=== PATIENT | female | born 1960 | race Caucasian/White ===

== ENCOUNTER → 2017-05-28 | Outpatient (CLI) | payer OTHER ==
[~2017-05-28] MED LIST: SIMV40TA2 PO
[2017-05-28 16:07] LABS: FOLLICLE STIMULAT HORMONE 107.78 IU/L
== END | disposition home or self-care (01) ==
LOC: C.LAB1850 14:32
PROVIDERS: ATTEND Obstetrics & Gynecology
DX: N95.0 Postmenopausal bleeding (principal)

== ENCOUNTER → 2017-07-05 | Outpatient (CLI) | payer OTHER ==
[2017-07-05 09:29] LABS: HEMATOCRIT 40.5 % (37-47); HEMOGLOBIN 13.4 g/dL (12.0-16.0); MEAN CELL VOLUME 92.9 fL (80-100); MEAN CORPUSCULAR HEMOGLOBIN 30.7 pg (25-34); MEAN CORPUSCULAR HGB CONC 33.1 g/dl (32-36); MEAN PLATELET VOLUME 9.5 fL (7.4-10.4); PLATELET COUNT 228 K/uL (130-400); RED CELL DISTRIBUTION WIDTH CV 12.9 % (11.5-14.5); RED CELL DISTRIBUTION WIDTH SD 43.8 fL (36.4-46.3); WHITE BLOOD COUNT 4.07 K/uL (4.8-10.8)
--- NOTE | 2017-07-05 09:48 | DIAGNOSTIC IMAGING REPORT ---
CHEST 2 VIEWS ROUTINE CLINICAL HISTORY: N95.0, Z01.818 PREOPERATIVE CHEST COMPARISON STUDY: 11/11/2013 FINDINGS: The cardiac and mediastinal contours are normal. There is no evidence of focal pulmonary consolidation. There is no evidence of failure. No pleural effusions are visualized.[ IMPRESSION: No active disease in the chest. Electronically signed by: Reese Sheets M.D. 07/05/2017 9:47 AM Dictated Date/Time: 07/05/2017 9:47 AM
[2017-07-05 10:11] LABS: ALBUMIN 3.7 gm/dl (3.4-5.0); ALT/SGPT 22 U/L (12-78); AST/SGOT 14 U/L (15-37); BLOOD UREA NITROGEN 16 mg/dl (7-18); CALCIUM 9.1 mg/dl (8.5-10.1); CARBON DIOXIDE 28 mmol/L (21-32); CREATININE 0.74 mg/dl (0.60-1.20); GLUCOSE 94 mg/dl (70-99); POTASSIUM 3.9 mmol/L (3.5-5.1); SODIUM 140 mmol/L (136-145)
[2017-07-05 10:12] LABS: ALKALINE PHOSPHATASE 80 U/L (45-117); TOTAL PROTEIN 7.2 gm/dl (6.4-8.2)
== END | disposition home or self-care (01) ==
LOC: C.LAB 08:30
PROVIDERS: ATTEND Obstetrics & Gynecology Gynecologic Oncology
DX: Z01.818 Encounter for other preprocedural examination (principal); N95.0 Postmenopausal bleeding

== ENCOUNTER → 2017-07-30 | Outpatient (CLI) | payer OTHER ==
--- NOTE | 2017-07-30 13:38 | DIAGNOSTIC IMAGING REPORT ---
KUB CLINICAL HISTORY: HEMATURIA, PERSONAL HISTORY OF URINARY CALCULI nephrocalcinosis COMPARISON STUDY: 11/30/2013 FINDINGS: Interval development of a 7 mm calcification mid right kidney. Interval development of a 4 mm calcification upper pole right kidney are normal development of a 4 mm calcification central left kidney. Calcification previous described at the lower pole right kidney is not identified currently. There are no significant paravertebral calcifications. There are multiple stable pelvic vascular calcifications. IMPRESSION: 1. Interval development of at least 2 right and one left renal calcification . 2. Interval resolution of a 4 mm lower pole right renal calcification compared to the prior exam. 3. Nonobstructive bowel pattern. The above report was generated using voice recognition software. It may contain grammatical, syntax or spelling errors. Electronically signed by: Yvan Dodge M.D. 07/30/2017 1:37 PM Dictated Date/Time: 07/30/2017 1:35 PM
== END | disposition home or self-care (01) ==
LOC: C.RAD 13:16
PROVIDERS: ATTEND Nurse Practitioner Family
DX: R31.9 Hematuria, unspecified (principal); Z87.442 Personal history of urinary calculi

== ENCOUNTER → 2017-08-12 | Outpatient (CLI) | payer OTHER ==
[~2017-08-12] MED LIST changes: +DULO-24 PO
[2017-08-12 09:55] LABS: BLOOD UREA NITROGEN 15 mg/dl (7-18); CREATININE 0.85 mg/dl (0.60-1.20)
== END | disposition home or self-care (01) ==
LOC: C.LAB 08:41
PROVIDERS: ATTEND Urology
DX: N20.0 Calculus of kidney (principal)

== ENCOUNTER → 2017-08-13 | Outpatient (CLI) | payer OTHER ==
[~2017-08-13] MED LIST changes: +OPTIRAY 320 IV PRN
--- NOTE | 2017-08-13 08:26 | DIAGNOSTIC IMAGING REPORT ---
CT UROGRAM CLINICAL HISTORY: Hematuria. Nephrolithiasis. COMPARISON STUDY: Abdominal CT dated 01/05/2012 and 04/26/2010. TECHNIQUE: Before and following the IV administration of 119 cc of Optiray 320, CT urogram of the abdomen and pelvis is performed from the lung bases to the proximal femora. Images are reviewed in the axial, sagittal, and coronal planes. IV contrast was administered without complication. A dose lowering technique was utilized adhering to the principles of ALARA. CT DOSE: 1945.30 mGycm FINDINGS: Lung bases: The heart is normal in size and without pericardial effusion. The coronary arteries are calcified. There is also calcification of the aortic valve leaflets. Linear atelectasis versus scarring is seen at the left lung base. No airspace consolidation or pleural effusion is identified. There are at least 8 pulmonary and pleural-based nodules scattered throughout both lung bases. The largest nodule is seen in the right lower lobe adjacent to major fissure on image #24 and measures up to 7 mm. Additional nodules are seen in the right middle lobe on images #14 and #16, and the right lower lobe on image #64, and in the left lower lobe on image #61. These have been present dating back to 2011 and are of doubtful significance given long-term stability. Liver: The contrast-enhanced liver is normal in size, contour, and attenuation. There is no intrahepatic biliary ductal dilatation. The hepatic veins and portal veins are patent. Gallbladder: Unremarkable. Spleen: Normal in size and attenuation. Pancreas: Unremarkable. Adrenal glands: Unremarkable. Kidneys and ureters: The contrast enhanced kidneys are normal in size and without hydronephrosis. There are 2 nonobstructing renal calculi measuring up to 9 mm. There are at least 3 nonobstructing right renal calculi measuring up to 7 mm. The kidneys enhance and excrete symmetrically. There is no enhancing renal cortical mass lesion identified. There is no evidence of urothelial lesion within the renal pelvis bilaterally or along the course of either ureter. The distal left ureter is not well opacified by excreted contrast. Abdominal vasculature: The abdominal aorta is normal in course and caliber noting mild atherosclerotic calcification. Bowel: There is moderate sigmoid diverticulosis without CT evidence of acute diverticulitis. No bowel obstruction is identified. The appendix is well visualized and normal. Peritoneum: There is no intraperitoneal free air or abdominal ascites. There is a fat-containing umbilical hernia. There is a small defect within the right abdominal wall musculature seen on image 226, possibly related to previous laparoscopy port. Lymphadenopathy: None. Pelvic viscera: The bladder is decompressed and grossly unremarkable. Calcified phleboliths are observed in the pelvis. The uterus is surgically absent. No adnexal lesion is seen. Skeletal structures: The skeletal structures are osteopenic. No lytic or blastic lesions are seen. IMPRESSION: 1. There are bilateral nonobstructing renal calculi as above. No ureteral stone or hydronephrosis is seen. 2. There is no enhancing renal cortical mass, and no evidence of urothelial lesion involving the renal pelvis bilaterally or along the course of the ureters. 3. The bladder is decompressed and grossly unremarkable. 4. Mild to moderate sigmoid diverticulosis without CT evidence of acute diverticulitis. 5. There are numerous pulmonary and pleural-based nodules seen at both lung bases. These have been present dating back to 2010 and are of doubtful significance. 6. Additional findings as above. Electronically signed by: Vinh Pérez M.D. 08/13/2017 8:25 AM Dictated Date/Time: 08/13/2017 7:44 AM
== END | disposition home or self-care (01) ==
LOC: C.CTS 07:10
PROVIDERS: ATTEND Urology
DX: N20.0 Calculus of kidney (principal); R31.9 Hematuria, unspecified; K57.30 Diverticulosis of large intestine without perforation or abscess without bleeding

== ENCOUNTER → 2017-08-23 | Outpatient (CLI) | payer OTHER ==
[~2017-08-23] MED LIST changes: -OPTIRAY 320 IV PRN
[2017-08-23 10:07] LABS: BASO % 0.5 %; BASO ABS # 0.02 K/uL (0-0.2); EOS % 5.1 %; EOS ABS # 0.19 K/uL (0-0.5); HEMATOCRIT 37.5 % (37-47); HEMOGLOBIN 12.7 g/dL (12.0-16.0); LYMPH % 36.1 %; LYMPH ABS # 1.34 K/uL (1.2-3.4); MEAN CELL VOLUME 91.7 fL (80-100); MEAN CORPUSCULAR HEMOGLOBIN 31.1 pg (25-34); MEAN CORPUSCULAR HGB CONC 33.9 g/dl (32-36); MEAN PLATELET VOLUME 9.2 fL (7.4-10.4); MONO % 10.8 %; NEUT % 47.5 %; NEUT ABS # 1.76 K/uL (1.4-6.5); PLATELET COUNT 217 K/uL (130-400); RED CELL DISTRIBUTION WIDTH SD 43.8 fL (36.4-46.3); WHITE BLOOD COUNT 3.71 K/uL (4.8-10.8)
[2017-08-23 10:41] LABS: BLOOD UREA NITROGEN 15 mg/dl (7-18); CARBON DIOXIDE 27 mmol/L (21-32); CREATININE 0.79 mg/dl (0.60-1.20); SODIUM 142 mmol/L (136-145)
== END | disposition home or self-care (01) ==
LOC: C.LAB 08:58
PROVIDERS: ATTEND Urology
DX: N20.0 Calculus of kidney (principal)

== ENCOUNTER 2018-11-19 06:02 | Inpatient (IN) ==
--- NOTE | 2018-10-10 08:09 | PAT Medication Instructions ---
Medication Instructions Date of Service October 10, 2018 Home Medications duloxetine 20 mg PO HS simvastatin 40 mg PO PM Take morning of surgery NOTHING TO EAT OR DRINK AFTER MIDNIGHT Take evening before surgery duloxetine 20 mg PO HS simvastatin 40 mg PO PM Other Notes If you have any questions please call us at [phone] or [phone] or [phone] or [phone]
--- NOTE | 2018-10-10 09:44 | Anesthesiology Consultation ---
Date of Service October 10, 2018 Assessment & Plan (1) Encounter for pre-operative examination: - All available previous anesthesia records done with [facility], no previously noted intubations - Patient does have noted moderate aortic stenosis (LILLIAN - 0.94 cm2, Ao mean PG - 25.7 Hg) - History of PONV. Scopolamine patch ordered for day of surgery. Chart Review Chart Review: Acceptable Risk for Surgery and Patient seen in Pre Admission Testing Consults Requested none Teaching & Discussion Pre-Anesthesia Teaching/Discussion Notes: Instructed NPO after midnight before surgery, except medications with 15 cc of water. Medication instructions provided according to the PAT guidelines. History Surgery Operation Date: 11/19/18 07:30 Proposed Procedures p Navigational Bronchoscopy with ICG Marking, Robotic Right VATS with Right Lower Lobe Wedge Resection, Possible Right Lower Lobectomy with Mediastinal Lym phadenectomy - Bennie Gambino MD, FACS s Robotic Video Assisted Thoracoscopy - Bennie Gambino MD, FACS Height/Weight Height: 5 ft 4 in Weight: 81.5 kg Allergies Allergy/AdvReac Type Severity Reaction Status Date / Time atorvastatin Allergy Mild ACHINESS Verified 10/03/18 10:42 rosuvastatin Allergy Mild ACHINESS Verified 10/03/18 10:42 Medications Home Medications Medication Instructions Recorded Confirmed Last Taken duloxetine 20 mg PO HS 03/24/18 10/03/18 04/03/18 simvastatin 40 mg PO PM 03/24/18 10/03/18 04/03/18 Past Medical History Medical History Anxiety Aortic stenosis MILD (FOLLOWS WITH DR. 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 Able to climb FOS. Denies CP. No SOB at rest. Does get mild MOSQUERA. ) Past Surgical History Surgical History History of cardiac cath 2007 (NO STENTS) History of colonoscopy History of cystoscopy STONE REMOVAL History of dilatation and curettage UTERINE ABLATION History of lithotripsy MULTIPLE History of tonsillectomy History of tooth extraction History of total abdominal hysterectomy and bilateral salpingo-oophorectomy Past Anesthesia History No Hx of Anesthesia Complications and No Family Hx of Anesthesia Complications History of PONV No Hx of Motion Sickness and History of PONV Social History Smoking Status: Former smoker tobacco type: cigarettes Smoking cigarettes per day: 20-40 Do You Dip or Chew Tobacco: No Smoking End Date: 1987 Hx Alcohol Use: Yes Alcohol type: wine alcohol intake frequency: a few times a week Hx Substance Use: No substance use type: does not use Review of Systems Patient denies chest pain, shortness of breath, joint pain, reflux, cough, wheezing, palpitations. +MOSQUERA (mild) +Cough/wheezing (when allergies act up) Physical Exam Vital Signs BP: 104/70 P: 72 R: 16 T: 98.0 SPO2: 96% on RA ENMT Thyromental Distance: > or= 3.5 Finger Breadths (3.5) Mallampati Class: I Neck normal visual inspection and trachea midline; neck extension not limited Respiratory normal respiratory effort Auscultation: lungs clear to auscultation bilaterally Cardiovascular Rate/Rhythm: regular rate and regular rhythm Heart Sounds: + murmur (06/18 (Aortic Stenosis)) Vessels: no carotid bruit Neurologic moves all extremities Psychiatric Orientation: alert and oriented x 3 Testing Laboratory Results 10/10/18 09:55 10/10/18 09:55 Blood Type O Positive 10/10/18 09:55 Antibody Screen NEGATIVE 10/10/18 09:55 Electrocardiogram Date: 10/10/18 Findings: + NSR @ (60) and + no change from (11/11/13) Echocardiogram Date: 07/16/18 EF: 65-70% Normal biventricular systolic function. Mild concentric left ventricular hypertrophy Type 1 left ventricular diastolic dysfunction Normal chamber dimensions Moderately calcified aortic valve. Moderate aortic stenosis based on mean gradient across aortic valve and the dimensionless aortic valve index. Mild to moderate aortic regurgitation. Trace mitral regurgitation Trace tricuspid regurgitation Normal estimated right ventricular systolic pressure Compared to an echocardiogram of 06/26/17, there has been a slight increase in the mean gradient across the aortic valve, slight decrease in the dimensionless aortic valve index, and slight decrease in the calculated aortic valve area. LILLIAN - 0.94 cm2 Ao mean PG - 25.7 Hg Ao max PG - 56.[address] SCAN OF THE CHEST WITH IV CONTRAST 09/17/18 CLINICAL HISTORY: Pulmonary nodules. FINDINGS: Thyroid: Imaged portions of the thyroid gland are normal in size and atten uation. Thoracic aorta: The thoracic aorta is normal in caliber and demonstrates 4vessel variant arch anatomy. No dissection is seen. Pulmonary vasculature: The pulmonary trunk is normal in caliber. There are no filling defects identified in the central pulmonary vessels to indicate pulmonary embolus. Note that this examination was not protocoled for evaluation of the pulmonary arteries. Heart: The heart is normal in size and without pericardial effusion. Lungs and pleural spaces: There is no airspace consolidation or pleural effusion. The trachea and central airways are clear. Again seen are numerous (greater than 10) irregular pulmonary nodules with a lower lobe predominance. The largest nodule in the left lower lobe seen on the 08/21/2018 CT scan as decreased in size. This now measures 12 mm as seen on image #183 (producing measured 16 mm). A right lower lobe nodule on image #170 has increased in size. This measures 11 mm as seen on image #170 (previously measuring 7 mm). Mediastinum: There is no mediastinal lymphadenopathy. Yani: Clear. Axillae: There is no axillary lymphadenopathy. Upper abdomen: Partially visualized upper abdominal viscera is within normal limits. Skeletal structures: No lytic or blastic bony lesions are seen. IMPRESSION: 1. There are numerous irregular (greater than 10) pulmonary nodules scattered throughout both lungs. These have waxed and waned as compared to 08/21/2018, and the appearance suggests an infectious/inflammatory etiology. Pulmonology follow- up is recommended as is CT follow-up. 2. There is no airspace consolidation or pleural effusion. 3. No mediastinal or hilar adenopathy is seen.
[2018-10-10 10:58] LABS: Basophils # (auto) 0.01 K/uL (0-0.2); Basophils % (auto) 0.3 %; Eosinophils # (auto) 0.14 K/uL (0-0.5); Eosinophils % (auto) 3.7 %; Hematocrit (blood only) 37.3 % (37-47); Hemoglobin 12.8 g/dL (12.0-16.0); Immature Granulocytes # (auto) 0.01 K/uL (0.00-0.02); Immature Granulocytes % (auto) 0.3 %; Lymphocytes # (auto) 1.32 K/uL (1.2-3.4); Lymphocytes % (auto) 35.1 %; Mean Corpuscular Hgb Conc 34.3 g/dL (32-36); Mean Corpuscular Volume 93.5 fL (80-100); Mean Platelet Volume 9.5 fL (7.4-10.4); Monocytes # (auto) 0.48 K/uL (0.11-0.59); Monocytes % (auto) 12.8 %; Neutrophils % (auto) 47.8 %; Platelet Count 229 K/uL (130-400); RDW Coefficient of Variation 13.3 % (11.5-14.5); RDW Standard Deviation 45.5 fL (36.4-46.3); Red Blood Count 3.99 M/uL (4.2-5.4); White Blood Count 3.76 K/uL (4.8-10.8)
[2018-10-10 11:06] LABS: BUN Creatinine Ratio 17.3 (10-20); Calcium 8.8 mg/dl (8.5-10.1); Creatinine Clr Calc Pharmacy 80.1 ml/min; Est GFR (African American) 94.9; Est GFR (Non-African American) 81.8; Potassium 4.1 mmol/L (3.5-5.1)
[~2018-11-19 06:02] MED LIST changes: -DULO-24 PO; +LR 15ML/HR IV SCH; -SIMV40TA2 PO
[2018-11-19] MEDS ORDERED: ONDANSETRON INJ 2 MG/ML 2 ML VIAL ONE (06:54)
[2018-11-19] MEDS ORDERED: PROPOFOL IV EMULSION 10 MG/ML 20 ML VIAL IV ONE (06:54)
[2018-11-19] MEDS ORDERED: ROCURONIUM BROMIDE 10 MG/ML 5 ML VIAL ONE ×6 (06:54→09:12)
[2018-11-19] MEDS ORDERED: LIDOCAINE HCL 2% 2 ML VIAL/AMP(20MG/ML) INFIL ONE (06:54)
[2018-11-19] MEDS ORDERED: MIDAZOLAM HCL 1 MG/ML 2ML VIAL ONE (06:55)
[2018-11-19] MEDS ORDERED: fentaNYL citrate 100 MCG/2 ML VIAL ONE ×2 (06:55→08:50)
[2018-11-19] MEDS: SCOPOLAMINE 1.5 MG TDSY TD SCH (06:57)
[2018-11-19] MEDS ORDERED: BUPIVACAINE 0.5 % 5 MG/1 ML MPF 30ML VIAL ONE (06:58)
[2018-11-19] MEDS ORDERED: SODIUM CHLORIDE 0.9% INJ 10 ML VIAL ONE (06:58)
--- NOTE | 2018-11-19 06:58 | History & Physical Report ---
Date of Service November 19, 2018 Assessment & Plan (1) Multiple lung nodules on CT: We had a long discussion about this particular case. We are going to proceed with a indocyanine green dye marking via electromagnetic navigational bronchoscopy. We will then proceed with a wedge resection and use firefly technology to localize this. For frozen section shows this to be a primary lung cancer we will proceed with a right lower lobectomy with mediastinal lymphadenectomy. If not we will proceed with a wedge resection alone. We will also send this for culture. Present on Admission?: Yes History of Present Illness Lucia Aragon is a 58-year-old female with a very light history of cigarette smoking. She quit smoking more than 20 years ago. She had a right-sided abdominal hernia underwent a CT scan was found to have some pulmonary nodules. She had a robotic hysterectomy for what turned out to be menorrhagia. She is had a cough for the last 1 to 2 years which is been persistent and nonproductive but bothersome to her. No hemoptysis. She is quite concerned about these nodules. PET scan did not show hypermetabolic activity but there is a right lower lobe nodule in particular the concern to me. We had a long talk in the office and I also discussed this with the patient and her today. Should this mass proved to be malignant she would easily tolerate a lobectomy. I have to say I am concerned about its appearance however the lack of hypermetabolic activity makes me feel a bit better. I did explain to the patient and her family that we could observe this. We could also proceed as we are going to do with a navigational bronchoscopy and a marking with indocyanine green with a wedge resection under firefly fluorescence. We discussed risk and benefits and they are aware. She would like to get this "settled". The cough in particular concerns her. Primary Care Provider: PETERSON Workman Allergies Allergy/AdvReac Type Severity Reaction Status Date / Time atorvastatin Allergy Mild ACHINESS Verified 11/19/18 06:19 rosuvastatin Allergy Mild ACHINESS Verified 11/19/18 06:19 Home Medications Home Medications Medication Instructions Recorded Confirmed Type duloxetine 20 mg PO HS 03/24/18 11/19/18 History simvastatin 40 mg PO PM 03/24/18 11/19/18 History Past Med/Surg History Medical History Incisional hernia (Acute) Right upper abdomen- from hysterectomy per pt. Lung nodule CURRENT ISSUE Anxiety Aortic stenosis MILD (FOLLOWS WITH DR. HACKETT)- Murmur Hyperlipidemia Kidney stones Surgical History History of cardiac cath 2007 (NO STENTS) History of colonoscopy History of cystoscopy STONE REMOVAL History of dilatation and curettage UTERINE ABLATION History of lithotripsy MULTIPLE History of tonsillectomy History of tooth extraction History of total abdominal hysterectomy and bilateral salpingo-oophorectomy Social History Preferred Language: Yakut Communication Ability: Effective Resident Inspector Required: No Beliefs That Will Affect Care: None Current Living Situation: Spouse Feels Safe at Home: Yes Safety Concerns: Feels Safe At This Time Smoking Status: Former smoker (QUIT IN 1987, SMOKED FOR 5 YEARS) Tobacco Type: cigarettes ; Cigarettes Per Day: 20-40 ; Do You Dip or Chew Tobacco: No ; Smoking End Date: 1987 ; Second Hand Exposure: No ; Hx Alcohol Use: Yes Alcohol type: wine Hx Substance Use: No Review of Systems Review of Systems: All systems reviewed & are unremarkable except as noted in HPI & below Patient has aortic stenosis. I discussed this case with Dr. Ezequiel Hackett who is also talked to the patient recently. She tolerated the robotic hysterectomy nicely. Patient understands she is at a bit more of a risk because of this aortic stenosis but has no symptoms from it. The rest of her review of systems was unremarkable. Physical Exam Physical Exam: This well-developed well-nourished female who is in no acute distress. She wears glasses. Extraocular movements are intact. Pupils were equal round reactive. Her sclera anicteric. She has no nasolabial flattening. Tongue is midline. Her teeth in good repair. Her neck is supple. She has no supra clavicular cervical lymphadenopathy. She had no axillary adenopathy. Her lungs are grossly clear this morning. She is regular rate and rhythm of her heart. Her abdomen is soft nontender. She has no peripheral edema. She has good peripheral pulses with no joint effusions. Neurologically she is completely intact. Results & Data Vital Signs (Past 12 Hours) Vital Signs Temp Pulse Resp BP Pulse Ox 11/19/18 06:21 36.5 C 70 18 125/62 97 PG Care Time/CCT Total # of Minutes Spent Total Time Spent with Patient: Total time spent is greater than 50% in coordination of care (as documented) at patient's floor/unit and/or counseling patient:
[2018-11-19] MEDS ORDERED: SODIUM CHLORIDE 0.9% PF 50 ML VIAL ONE (06:59)
[2018-11-19] MEDS ORDERED: BUPIVACAINE LIPOSOME 1.3% 266 MG/20 ML VIAL ONE (07:00)
[2018-11-19] MEDS ORDERED: ATROPINE SULFATE 0.1 MG/ML 10ML SYR IV PRN (07:08)
[2018-11-19] MEDS ORDERED: fentaNYL citrate 100 MCG/2 ML VIAL IV PRN (07:08)
[2018-11-19] MEDS ORDERED: ePHEDrine sulfate 50 MG/ML AMP IV PRN (07:08)
[2018-11-19] MEDS ORDERED: HYDROmorphone INJ 1 MG/ML SYRINGE IV PRN (07:08)
[2018-11-19] MEDS ORDERED: ONDANSETRON INJ 2 MG/ML 2 ML VIAL IV PRN ×2 (07:08→12:10)
[2018-11-19] MEDS ORDERED: CEFAZOLIN 2,000 MG/15 ML IV PUSH IV ONE (07:20)
--- NOTE | 2018-11-19 09:00 | Fluoroscopy Report ---
FL chest 1V frontal HISTORY: 58 years-old Female NAVIGATIONAL BRONCHSCOPY COMPARISON: Chest CT 09/17/2018 TECHNIQUE: 1 spot fluoroscopic image of the chest was obtained utilizing 30.9 seconds of fluoroscopy time. FINDINGS: A bronchoscope is noted about the right mainstem bronchus with catheter device projecting over the me dial right lung base. IMPRESSION: Fluoroscopic assistance as above. Please see procedural report for further details. The above report was generated using voice recognition software. It may contain grammatical, syntax o r spelling errors. Electronically signed by: Fam Chew M.D. 11/19/2018 8:59 AM
[2018-11-19] MEDS ORDERED: CEFAZOLIN 2000MG 2,000 MG/15 ML SYR IV ONE (09:57)
[2018-11-19] MEDS ORDERED: PROGEL PLEURAL AIR LEAK SEALAN 4ML TOP ONE (09:58)
[2018-11-19] MEDS ORDERED: CEFAZOLIN 1000MG 1,000 MG/7.5 ML SYR IV STA (09:58)
[2018-11-19] MEDS ORDERED: INDOCYANINE GREEN 25 MG/10 ML INJ ONE (09:59)
[2018-11-19] MEDS ORDERED: GLYCOPYRROLATE 0.2 MG/ML VIAL ONE (10:16)
[2018-11-19] MEDS ORDERED: NEOSTIGMINE METHYLSULFATE 5 MG/5 ML SYR ONE (10:16)
--- NOTE | 2018-11-19 10:32 | Post Operative Brief Note ---
PG Immediate Post Op with CF Date of Surgery November 19, 2018 Pre & Post Diagnosis Operation Date: 11/19/18 07:30 Pre-Op Diagnosis: Right Lung Nodule Post-Op Diagnosis: Right Lung Nodule Procedure Operation Date: 11/19/18 07:30 Actual Procedures p Navigational Bronchoscopy with ICG Marking(Not Applicable) - Bennie Gambino MD, FACS s Right Robotic Video-Assisted Thoracoscopy, Right Lower Lobe Wedge Resection, with Mediastinal Lymphadenectomy(Right) - Bennie Gambino MD, FACS Surgeon Bennie Gambino MD, FACS Dental Surgeon William NEGRO Estimated Blood Loss 10 Findings Consistent with Post-Op Diagnosis Specimens Specimen Description: Specimen for Bronchoscopy handled by Respiratory Permanent A: R9 Lymph Node B: R8 Lymph Node Culture 1: Culture of R8 Lymph Nodes 2: Right Lower Lobe Wedge for Culture Frozen 1: Right Lower Lobe Wedge 2: Additional Right Lower Lobe Wedge 3: Right Lower Lobe Wedge #3 4: Right Lower Lobe Wedge #4 Drains Alonso Catheter
[2018-11-19] MEDS ORDERED: METOCLOPRAMIDE HCL INJ 5 MG/ML 2 ML VIAL IV ONE (10:40)
--- NOTE | 2018-11-19 11:03 | XRay Report ---
SINGLE VIEW CHEST CLINICAL HISTORY: Status post right-sided lung biopsy. FINDINGS: An AP, portable, upright chest radiograph is compared to study dated 07/05/2017 and correlat ed with chest CT dated 09/17/2018. The examination is degraded by portable technique and patient rotati on. The cardiomediastinal silhouette is unremarkable. A right-sided chest tube is in place. Trace ri ght apical pneumothorax is identified. Airspace consolidation is seen at the medial right lung base. There is a trace right pleural effusion. Atelectasis is noted at the left lung base. The skeletal str uctures are osteopenic. The bony thorax is grossly intact. IMPRESSION: 1. A right-sided chest tube is in place and there is trace right apical pneumothorax. 2. Consolidation at the medial right lung base could represent atelectasis, pneumonia/aspiration, or possibly postprocedural hemorrhage. Clinical correlation will be required. 3. There is trace right pleural effusion. Electronically signed by: Vinh Pérez M.D. 11/19/2018 11:02 AM
[2018-11-19] MEDS ORDERED: MoRPHine SULFATE 2 MG/ML CARP IV PRN (12:10)
[2018-11-19] MEDS ORDERED: D5W AND 1/2NSS 1,000 ML IV SCH (12:10)
--- NOTE | 2018-11-19 12:18 | Anesthesiology Progress Note ---
Date of Service November 19, 2018 Anesthesia Post Procedure Vital Signs Vital Signs: Temp Pulse Pulse Resp BP Pulse Ox 11/19/18 11:50 66 14 97/73 L 97 11/19/18 11:45 36.3 C L 61 12 100/65 98 11/19/18 11:35 59 L 14 105/57 L 100 11/19/18 11:25 56 L 17 105/56 L 100 11/19/18 11:15 60 16 102/58 L 100 11/19/18 11:05 69 17 100/60 99 11/19/18 10:55 77 14 103/74 100 11/19/18 10:46 36.1 C L 90 18 118/68 100 11/19/18 06:21 36.5 C 70 18 125/62 97 Pain Intensity Medial Back: Pain Intensity: 4 Transfer of Care Handoff Completed per policy Notes Mental Status: alert / awake / arousable and participated in evaluation Patient Amnestic to Procedure: Yes Nausea / Vomiting: adequately controlled Pain: adequately controlled Airway Patency, RR, SpO2: stable & adequate BP & HR: stable & adequate Hydration State: stable & adequate Anesthetic Complications: no major complications apparent and Pt Satisfied with anesthetic care
[2018-11-19] MEDS ORDERED: ACETAMINOPHEN 650 MG SUPP ONE (12:49)
[2018-11-19] MEDS: ACETAMINOPHEN 1,000 MG/100 ML VIAL IV SCH ×2 (12:57→21:56)
[2018-11-19] MEDS: OXYCODONE HCL IR 5 MG TAB (IMMEDIATE RELEASE) PO PRN (13:52)
[2018-11-19] MEDS ORDERED: COUGH DROP (SUGAR FREE) LOZ 24 LOZ/1 BOX BUCCAL PRN (16:31)
--- NOTE | 2018-11-19 17:02 | Operative Report ---
DATE OF OPERATION: 11/19/2018 PREOPERATIVE DIAGNOSIS: Spiculated mass, right lower lobe. POSTOPERATIVE DIAGNOSIS: Benign inflammatory granulomatous nodules, right lower lobe. SURGEON: Bennie Gambino MD. SUPERVISOR LUMP ROOM: MARKY Burks. ANESTHESIA: General anesthesia with a double lumen endotracheal intubation. PROCEDURES: 1. Electromagnetic navigational bronchoscopy with marking of right medial lower lobe mass using indocyanine green dye. 2. Robot-assisted thoracoscopic wedge resection using Firefly technology. 3. Lymph node biopsies. SPECIFICS OF PROCEDURE AND FINDINGS: Lucia Aragon is a 58-year-old who has been bothered by cough for the last 1-2 years. She has a very light history of cigarette smoking. She has had some lesions which have waxed and waned; however, there was a spiculated lesion in the medial right lower lobe that concerned me. She is low risk for a primary carcinoma of the lung, but the nodules were persisted. She had chronic nonproductive cough for the last 1-2 years. We had a long talk about this. I stated to her many ways to handle this and one way would be to simply watch her and repeat a CT scan. She stated quite frankly this has not really helped her in the past. At this point, I did inform the patient and her that we could corrina this small nodule and wedged it out and at least find out its etiology. She was quite eager to have this done. On 11/19/2018, the patient underwent an uncomplicated resection. I wedged out several small nodules. We also did some lymph node biopsies. Frozen section showed some granulomatous inflammation and possible intraparenchymal lymph nodes. She tolerated it quite well and was extubated in the room, had no air leak and had negligible blood loss. The patient was brought to the operating room and laid in the supine position. A single lumen endotracheal tube was inserted. Prophylactic antibiotics given, appropriate timeout was called. Fiberoptic bronchoscope was placed through the adapter and ____ showed an endotracheal tube was in correct position above the que. We then registered the airways without difficulty. The navigational probe was then placed through the working channel and this got us down in the right lower lobe nodule quite quickly. An ultrasound showed that we were in proper position and this was confirmed with the fluoroscopy. I was quite pleased with this and we locked it. We locked this into place and then a long needle was placed and under fluoroscopic guidance it was directed right towards the target. One mL of indocyanine dye was then injected. The navigational probe was then removed. We saw really no evidence of any endobronchial bleeding. Her airways also appeared quite nice with no endobronchial lesions, sputum or erythema. She tolerated this well. We got her readied for her robot-assisted thoracoscopic wedge resection. I attest to the content of the Intraoperative Record and any orders documented therein. Any exception s are noted below.
--- NOTE | 2018-11-19 17:14 | Operative Report ---
DATE OF OPERATION: 11/19/2018 PREOPERATIVE DIAGNOSIS: Spiculated mass, medial right lower lobe. POSTOPERATIVE DIAGNOSIS: Spiculated mass, medial right lower lobe. PROCEDURE: 1. Robot-assisted thoracoscopic wedge resection using ICG, Marcaine and Firefly fluorescence to locate it. 2. Lymph node biopsies. SURGEON: Bennie Gambino MD. STRUCTURAL RIGGER: MARKY Burks. OPERATIVE PROCEDURE AND FINDINGS: On 11/19/2018, the patient was taken to the operating room and underwent an electromagnetic navigational bronchoscopy without difficulty and got us to the lesion. We injected ICG dye and then switched her over to a double lumen tube and turned her in left lateral decubitus position. Right chest was prepped and draped in usual sterile fashion. An 8.5 mm trocar was placed just a little posterior to the mid axillary line in the eighth interspace. We could see there were no adhesions. We then put an 8 mm port, both medially and lateral to this in the same interspace and placed an environmental engineering assistant's port medial. We then went down and using the Firefly technology, we were able to localize this area quite nicely with the fluorescence. We then grasped this area and I fired an Endo-JEFF stapler around this several times. This was sent for frozen section. While waiting for this, I then took down the inferior pulmonary ligament and biopsied level 8 and level 9 nodes. I then spoke to the pathologist and states that he did not really feel a mass per se; however, under the fluorescence it certainly appeared that we got the lesion. However, I was a more aggressive and took more of the lower lobe with 3 separate wedge biopsies. We really had no bleeding at this. ____ area that I sprayed with ProGel. Frozen section came back as probable granulomatous disease with no evidence of malignancy. 266 mg of Exparel and 20 mL of solution was mixed with 30 mL of 0.5% bupivacaine and 250 mL of normal saline used to inject each of the port sites. We then used this to perform an intercostal block from the 2nd through 11th rib. She tolerated this very well. A 24-Spanish chest tube was placed through the anterior port and directed towards the apex. A single 0 Vicryl suture was used to close the muscle layer and the camera port and the environmental engineering assistant's port. A 4-0 Monocryl was used in running subcuticular fashion to approximate the wound edges. She tolerated it well, was extubated in the room. I attest to the content of the Intraoperative Record and any orders documented therein. Any exception s are noted below.
[2018-11-19 18:15] LABS: Prothrombin Time 10.2 Seconds (9.0-12.0)
[2018-11-19] MEDS ORDERED: SIMVASTATIN 40 MG TAB PO SCH (21:00)
[2018-11-19] MEDS ORDERED: DULOXETINE HCL 20 MG CAP PO SCH (21:00)
[2018-11-19] MEDS: DOCUSATE SODIUM 100 MG CAP PO SCH (21:04)
[2018-11-19] MEDS: METOCLOPRAMIDE HCL INJ 5 MG/ML 2 ML VIAL IV SCH (21:04)
[2018-11-20] MEDS: METOCLOPRAMIDE HCL INJ 5 MG/ML 2 ML VIAL IV SCH (03:44)
[2018-11-20] MEDS: OXYCODONE HCL IR 5 MG TAB (IMMEDIATE RELEASE) PO PRN (04:18)
[2018-11-20] MEDS: ACETAMINOPHEN 1,000 MG/100 ML VIAL IV SCH (05:46)
[2018-11-20] MEDS: SCOPOLAMINE 1.5 MG TDSY TD SCH (05:50)
--- NOTE | 2018-11-20 07:16 | XRay Report ---
XR chest 1V portable HISTORY: 58 years-old Female right lung wedge biopsy status post right lung wedge biopsy COMPARISON: Chest radiograph 11/19/2018 TECHNIQUE: Portable AP view of the chest FINDINGS: Cardiomediastinal and hilar silhouettes are unchanged. Postoperative changes of the right lung. Stabl e positioning of the right-sided chest tube, distal tip projecting over the right hilum, slightly cau saeed from comparison. Probable tiny right apical pneumothorax appears decreased in size from compariso n. Unchanged right hemidiaphragmatic elevation. Subsegmental left basilar opacities suggest probable atelectasis. No large pleural effusion or overt pulmonary edema. Bones of the chest appear grossly in tact. IMPRESSION: 1. Postoperative changes of the right lung with right-sided chest tube projecting over the right jamel hilar distribution. 2. Decreased size of the tiny right apical pneumothorax. 3. Subsegmental left basilar opacities suggest atelectasis. The above report was generated using voice recognition software. It may contain grammatical, syntax o r spelling errors. Electronically signed by: Fam Chew M.D. 11/20/2018 7:15 AM
--- NOTE | 2018-11-20 08:04 | XRay Report ---
XR chest 1V portable CLINICAL HISTORY: 58 years-old Female presenting with tube removal. TECHNIQUE: Portable upright AP view of the chest was obtained. COMPARISON: 11/20/2018 at 7:00 AM. FINDINGS: The right pleural drain has been removed. Cardiomediastinal silhouette unchanged. Trace if any right pneumothorax is present. Left basilar bandlike opacity unchanged. No new focal opacity. No pleural ef fusion. Osseous structures normal. Upper abdomen normal. IMPRESSION: 1. Status post removal of the right pleural drain. Trace if any right pneumothorax is present. A per sistent left basilar scarring. Electronically signed by: Dileep Ramírez M.D. 11/20/2018 8:02 AM
[2018-11-20] MEDS: DOCUSATE SODIUM 100 MG CAP PO SCH (08:28)
[2018-11-20] MEDS ORDERED: ENOXAPARIN INJ 40 MG/0.4 ML SYR SQ SCH (09:00)
--- NOTE | 2018-11-20 09:41 | Anesthesiology Progress Note ---
Date of Service November 20, 2018 Anesthesia Post Procedure Vital Signs Vital Signs: Temp Pulse Pulse Resp BP BP Pulse Ox 11/20/18 08:45 37.0 C 75 18 113/73 99/63 L 92 11/20/18 07:26 11/20/18 04:20 75 18 92 11/20/18 04:00 37.0 C 63 16 99/63 L 95 11/20/18 00:00 36.6 C 65 16 113/73 95 11/19/18 22:08 36.9 C 92 H 18 102/62 91 11/19/18 20:03 36.8 C 87 16 100/62 91 11/19/18 18:20 36.7 C 88 18 95/60 L 92 11/19/18 15:57 36.6 C 84 18 101/68 92 11/19/18 14:52 36.5 C 80 18 92/57 L 92 11/19/18 14:02 36.3 C L 79 18 90/49 L 95 11/19/18 13:05 36.2 C L 71 18 101/66 92 11/19/18 12:31 36.3 C L 71 18 106/67 92 11/19/18 12:00 36.6 C 71 16 98/59 L 92 11/19/18 11:50 66 14 97/73 L 97 11/19/18 11:45 36.3 C L 61 12 100/65 98 11/19/18 11:35 59 L 14 105/57 L 100 11/19/18 11:25 56 L 17 105/56 L 100 11/19/18 11:15 60 16 102/58 L 100 11/19/18 11:05 69 17 100/60 99 11/19/18 10:55 77 14 103/74 100 11/19/18 10:46 36.1 C L 90 18 118/68 100 Pulse Ox 11/20/18 08:45 11/20/18 07:26 92 11/20/18 04:20 11/20/18 04:00 11/20/18 00:00 11/19/18 22:08 11/19/18 20:03 11/19/18 18:20 11/19/18 15:57 11/19/18 14:52 11/19/18 14:02 11/19/18 13:05 11/19/18 12:31 11/19/18 12:00 92 11/19/18 11:50 11/19/18 11:45 11/19/18 11:35 11/19/18 11:25 11/19/18 11:15 11/19/18 11:05 11/19/18 10:55 11/19/18 10:46 Pain Intensity Medial Back: Pain Intensity: 3 Notes Mental Status: alert / awake / arousable and participated in evaluation Patient Amnestic to Procedure: Yes Nausea / Vomiting: adequately controlled Pain: adequately controlled Airway Patency, RR, SpO2: stable & adequate BP & HR: stable & adequate Hydration State: stable & adequate Anesthetic Complications: no major complications apparent and Pt Satisfied with anesthetic care
[2018-11-20] MEDS ORDERED: ACETAMINOPHEN 325 MG TAB PO SCH (12:00)
--- NOTE | 2018-11-21 01:57 | Discharge Summary ---
DISCHARGE DIAGNOSIS: Apparent granulomatous nodules, right lower lobe. HOSPITAL COURSE: Lucia Aragon is a very nice 58-year-old female who has had a persistent cough for the last 1 or 2 years and was found to have some nodules in her right lower lobe. She was very concerned about this, so we prepared her for a resection and on 11/19/2018, we performed an electromagnetic navigational bronchoscopy and marking of this area with indocyanine green dye. We then turned her and using 3 of the 4 robotic arms made 3 ports along with an school psychologist assistant port and we were able to localize this mass and wedged out several areas. It appeared to be granulomatous. I was quite pleased with the outcome of this and also dissected out some lymph nodes. She tolerated it well. She had no air leak and really no bleeding. We removed her chest tube on postop day 1. She had good pain control. We did give her tramadol. We will see her back in the office in a week or so.
== END 2018-11-20 09:32 | disposition home or self-care (01) | DRG 168 ==
LOC: ASU 06:02 → 3W 10:27

== ENCOUNTER 2021-04-10 19:52 | Inpatient (IN) ==
[2021-04-10] MEDS ORDERED: SODIUM CHLORIDE 0.9% 500 ML IV STA (19:58)
[2021-04-10 20:47] LABS: Hematocrit (blood only) 42.6 % (37-47); Hemoglobin 14.3 g/dL (12.0-16.0); Mean Corpuscular Hemoglobin 31.6 pg (25-34); Mean Corpuscular Hgb Conc 33.6 g/dL (32-36); Mean Platelet Volume 9.6 fL (7.4-10.4); Platelet Count 230 K/uL (130-400); RDW Coefficient of Variation 13.2 % (11.5-14.5); RDW Standard Deviation 45.4 fL (36.4-46.3); Red Blood Count 4.53 M/uL (4.2-5.4); White Blood Count 7.92 K/uL (4.8-10.8)
[2021-04-10 21:05] LABS: BUN Creatinine Ratio 16.2 (10-20); Calcium 9.1 mg/dl (8.5-10.1); Creatinine Clr Calc Pharmacy 48.9 ml/min; Est GFR (Non-African American) 44.9 ml/min; Potassium 3.9 mmol/L (3.5-5.1)
[2021-04-10] MEDS ORDERED: MoRPHine SULFATE 10 MG/ML CARP/VIAL IV STA ×2 (22:17→22:45)
[2021-04-10] MEDS ORDERED: ONDANSETRON INJ 2 MG/ML 2 ML VIAL IV STA (22:17)
[2021-04-10] MEDS ORDERED: SODIUM CHLORIDE 0.9% 1000ML 1,000 ML IV SCH (22:18)
--- NOTE | 2021-04-10 22:22 | Emergency Department Note ---
Impression & Plan Calculus of proximal left ureter, Acute left flank pain ED Provider Note CHIEF COMPLAINT: Left flank pain, nausea and vomiting x5 hours HISTORY OF PRESENT ILLNESS: Patient is a 60-year-old female with past medical history significant for kidney stones, valvular heart disease, dyslipidemia, an xiety who presents emergency department for evaluation of left flank pain. She is following with urology, has a known 5 mm stone in the left kidney on last imaging. This was being monitored. Patient noted some painless hematuria about 7 days ago, which resolved. This evening about 5 hours ago she was getting ready to leave for dinner when she developed acute onset of a very severe left flank pain. Pain steadily escalated, and was associated with nausea and vomiting. Pain is primarily in the left back that wraps around to the left groin. She tried taking oxycodone and Flomax at home but vomited them up. She states this is one of the worst kidney stones that she has had in recent memory. No urinary symptoms. She feels pressure to void but has not been able to urinate since arriving in the emergency department. She currently rates her pain a 10/10. REVIEW OF SYSTEMS: Review of systems as per HPI. All other systems reviewed were negative. 10 systems reviewed. PMH: Electronic medical records are reviewed and summarized as above/below. See Problem List. SOCIAL HISTORY: Patient lives at home. . Former smoker. PHYSICAL EXAM: Vital Signs: Reviewed Nurse's notes. CONSTITUTIONAL: Patient is an uncomfortable appearing 60-year-old female who is awake and alert and in obvious distress due to her stated complaint. EYES: Pupils equal, round, reactive to light and accommodation. EOMs intact without nystagmus. Sclera are anicteric. ENT: Tympanic membranes intact, with normal landmarks. External canals are clear. Oral and nasopharynx are clear. Mucous membranes are moist, no lesions, tongue and gums appear normal. CARDIOVASCULAR: Regular rate and rhythm, systolic ejection murmur noted.. Peripheral pulses easily palpable. RESPIRATORY: Breath sounds equal and clear to auscultation without wheezes, rales, or rhonchi heard. Full and equal chest expansion without accessory muscle use or retractions. ABDOMEN: Bowel sounds are present. Abdomen is soft, nondistended, mildly tender to palpation in the left lower quadrant. No guarding or rebound. Positive left flank tenderness to palpation. INTEGUMENTARY: No lesions or rash, normal skin turgor. LYMPH: No lymphadenopathy. EMERGENCY DEPARTMENT COURSE: The patient was seen and assessed as above. Old records were reviewed. Critical pathways implemented included IV and blood work. Laboratory studies note a normal white count at 7900. No anemia. Electrolytes are within normal limits. BUN 21, creatinine 1.3, up slightly from her baseline. Prior creatinines are between 0.75 and 0.85. She did receive a 500cc bolus of NSS while in the waiting room. Patient was evaluated to when she was placed in exam room C 11. She was ordered a liter bolus of normal saline solution, morphine 6 mg and Zofran 4 mg IV. Prior imaging had been reviewed with her. Her last CT scan was several years ago and most recent imaging was a KUB from almost a year ago. Recommended imaging with CT scan and she was agreeable. Patient was reassessed when she returned from CT. She had just little relief with the initial dose of morphine. She was given an additional morphine 6 mg IV. She was also given Toradol 15 mg IV. She was able to provide a urine specimen, which was sent for analysis. She was given ice chips. She and her are aware that we are waiting on the CT report. Urine microscopy notes a contaminated sample with greater than 30 epi's, 2+ ketones, blood and leuk esterase with greater than 30 WBCs and no bacteria. A urine culture is pending per procotol. Patient was reassessed. She is feeling much more comfortable and relaxed after the IV Toradol, she rated her pain a 0/10. She has no longer nauseous. Urinalysis results were reviewed with her. Treatment options were reviewed with her. Options include a trial of stone passage at home with antiemetics, pain medications and Flomax, versus admission/observation for IV hydration, pain management and urologic evaluation to see if she is a surgical candidate. She would like to consider these options and make a decision when she has the results of the CAT scan. A Covid swab was ordered for possible admission/surgical intervention. She was ordered an additional liter bolus of normal saline solution, then 250 cc/h. At this time, patient's care was signed out to Felix Cueva PA-C, pending CT results and disposition. Please refer to his dictation for the remainder of the ED course and ultimate disposition. Differential diagnoses considered included UTI, pyelonephritis, kidney stone, shingles, hernia, musculoskeletal pain, diverticulitis, bowel obstruction, mass or malignancy, among others. Past Med/Surg History Medical History (Updated 04/11/21 @ 00:05 by Aliya Stewart) Anxiety Aortic regurgitation Aortic stenosis Moderate (FOLLOWS WITH DR. HACKETT)- Murmur Hyperlipidemia Incisional hernia Right upper abdomen- from hysterectomy per pt. Kidney stones Lung nodule CURRENT ISSUE Surgical History History of cardiac cath 2007 (NO STENTS) History of colonoscopy History of cystoscopy STONE REMOVAL History of dilatation and curettage UTERINE ABLATION History of lithotripsy MULTIPLE History of tonsillectomy History of tooth extraction History of total abdominal hysterectomy and bilateral salpingo-oophorectomy Status post lung surgery Family History Family/Other Family history of diabetes mellitus Social History Smoking Status: Former smoker Cigarettes Per Day: 20-40; Second Hand Exposure: No; Hx Alcohol Use: Yes Alcohol type: wine Hx Substance Use: No Preferred Language: French Communication Ability: Effective Visual Impairment: No Limitations Hearing Ability: Normal Radiation Therapy Technician Required: No Beliefs That Will Affect Care: None Current Living Situation: Spouse Feels Safe at Home: Yes Assistive Devices: Walker Allergies Allergies Allergy/AdvReac Type Severity Reaction Status Date / Time atorvastatin Allergy Mild ACHINESS Verified 04/10/21 22:26 rosuvastatin Allergy Mild ACHINESS Verified 04/10/21 22:26 Home Meds Home Medications Medication Instructions Recorded Confirmed duloxetine 20 mg capsule,delayed 20 mg PO HS 03/24/18 04/10/21 release simvastatin 40 mg tablet 40 mg PO HS 04/10/21 04/10/21 Results & Data (ED) Vital Signs Vital Signs - 24 hr 04/10/21 19:55 04/10/21 23:08 Temperature 36.5 C Temperature Source Temporal Artery Scan Pulse Rate 81 Pulse Rate [Finger] 82 Respiratory Rate 18 22 Respiratory Effort / Characteristics Non-Labored Spontaneous Respiratory Depth Normal Blood Pressure 153/92 H Blood Pressure [Left Arm] 154/78 H Blood Pressure Mean 112 Blood Pressure Mean [Left Arm] 103 Blood Pressure Position Sitting Blood Pressure Position [Left Arm] Lying Pulse Oximetry 97 97 Oxygen Delivery Method Room Air Room Air Sepsis Recent Fever Within 48 Hours No Sepsis New/Unexplained Change in Mental Status N/A Sepsis Action Taken by Nursing No Action Required Home Medications Current Medication List: was personally reviewed by me Laboratory Data Attestation: I reviewed the patient's lab results. Result diagrams: 04/10/21 20:38 04/10/21 20:38 Lab Results 04/10/21 04/10/21 04/10/21 Range/Units 20:38 20:38 Unknown WBC 7.92 (4.8-10.8) K/uL RBC 4.53 (4.2-5.4) M/uL Hgb 14.3 (12.0-16.0) g/dL Hct 42.6 (37-47) % MCV 94.0 (80-100) fL MCH 31.6 (25-34) pg MCHC 33.6 (32-36) g/dL RDW Std Deviation 45.4 (36.4-46.3) fL RDW Coeff of Leyla 13.2 (11.5-14.5) % Plt Count 230 (130-400) K/uL MPV 9.6 (7.4-10.4) fL Sodium 140 (136-145) mmol/L Potassium 3.9 (3.5-5.1) mmol/L Chloride 107 (98-107) mmol/L Carbon Dioxide 26 (21-32) mmol/L Anion Gap 7.0 (3-11) BUN 21 H (7-18) mg/dl Creatinine 1.30 H (0.6-1.2) mg/dl Est Cr Clr Drug Dosing 48.9 ml/min Est GFR ( Amer) 52.0 ml/min Est GFR (Non-Af Amer) 44.9 ml/min BUN/Creatinine Ratio 16.2 (10-20) Glucose 116 H (70-99) mg/dl Calcium 9.1 (8.5-10.1) mg/dl Urine Color Yellow Urine Appearance Clear (Clear) Urine pH 5.0 (4.5-7.5) Ur Specific Mikado 1.023 (1.000-1.030) Urine Protein Negative (Negative) Urine Glucose (UA) Negative (Negative) Urine Ketones 2+ H (Negative) Urine Blood 2+ H (Negative) Urine Nitrite Negative (Negative) Urine Bilirubin Negative (Negative) Urine Urobilinogen Negative (Negative) Ur Leukocyte Esterase 2+ H (Negative) Urine WBC (Auto) >30 H (0-5) /hpf Urine RBC (Auto) 5-10 H (0-4) /hpf U Hyaline Cast (Auto) 1-5 (0-5) /lpf U Epithel Cells (Auto) >30 H (0-5) /lpf Urine Bacteria (Auto) Negative (Negative) Administered Medications Discontinued Medications Sodium Chloride (Nss) 500 mls @ 999 mls/hr IV .Q31M STA Stop: 04/10/21 20:28 Last Infusion: 04/10/21 23:03 Dose: 0 mls/hr Documented by: [id number] Admin: 04/10/21 20:33 Dose: 999 mls/hr Documented by: [id number] Sodium Chloride (Nss 1000ml) 1,000 mls @ 999 mls/hr IV .Q1H1M SAMUEL Stop: 04/10/21 23:18 Last Admin: 04/10/21 22:25 Dose: 999 mls/hr Documented by: [id number] Ketorolac Tromethamine (Ketorolac Tromethamine 15 Mg/Ml Vial) 15 mg IV NOW STA Stop: 04/10/21 23:13 Last Admin: 04/10/21 23:15 Dose: 15 mg Documented by: [id number] Morphine Sulfate (Morphine Sulfate 10 Mg/Ml Carp/Vial) 6 mg IV NOW STA Stop: 04/10/21 22:18 Last Admin: 04/10/21 22:25 Dose: 6 mg Documented by: [id number] Morphine Sulfate (Morphine Sulfate 10 Mg/Ml Carp/Vial) 6 mg IV NOW STA Stop: 04/10/21 22:46 Last Admin: 04/10/21 23:00 Dose: 6 mg Documented by: [id number] Ondansetron HCl (Ondansetron Inj 2 Mg/Ml 2 Ml Vial) 4 mg IV NOW STA Stop: 04/10/21 22:18 Last Admin: 04/10/21 22:25 Dose: 4 mg Documented by: [id number] Imaging Data Attestation: I personally reviewed and interpreted this imaging study as follows: Prescription Drug Monitoring [place] Drug Monitoring Program reviewed and no issues identified Discharge Plan Visit Data Chief Complaint: Kidney Stone Stated Complaint: KIDNEY STONE WONT PASS, VOMITING ED Provider: Bea Delacruz ED Midlevel Provider: Aliya Stewart Discharge Problem: Calculus of proximal left ureter, Acute left flank pain Forms Stand Alone Forms: [facility] [employer] Prescriptions Prescriptions: No Action duloxetine 20 mg Capsule,Delayed Release(Dr/Ec) 20 mg PO HS RF: 0 simvastatin 40 mg tablet 40 mg PO HS RF: 0 Referrals Referrals: Anjali Carpio CRNP [Primary Care Provider] -
[2021-04-10] MEDS ORDERED: KETOROLAC TROMETHAMINE 15 MG/ML VIAL IV STA (23:12)
[2021-04-10 23:40] LABS: Appearance Urine Clear (Clear); Bacteria Urine Automated Negative (Negative); Bilirubin Urine Negative (Negative); Blood Urine 2+ (Negative); Color Urine Yellow; Epithelial Cell Urine Auto >30 /lpf (0-5); Glucose Urine UA Negative (Negative); Ketones Urine 2+ (Negative); Leukocyte Esterase Urine 2+ (Negative); Nitrite Urine Negative (Negative); Protein Urine Negative (Negative); Specific Gravity Urine 1.023 (1.000-1.030); Urobilinogen Urine Negative (Negative); WBC Urine Automated >30 /hpf (0-5)
[2021-04-11] MEDS ORDERED: SODIUM CHLORIDE 0.9% 1000ML 1,000 ML IV SCH
[2021-04-11] MEDS: SODIUM CHLORIDE 0.9% 1000ML 1,000 ML IV SCH ×3 (00:17→07:40)
--- NOTE | 2021-04-11 00:37 | Emergency Department Note ---
ED Visit Note Patient case was signed out to me by Lesvia Stewart PA-C pending CT scan report. Please refer to her note regarding HPI, ROS, physical examination and medical decision making up until that point. CT scan report as below. Patient unfortunately has a large obstructing stone on the left at the UPJ. This is felt to be the cause of her symptoms. No infectious symptoms. Options were discussed with the patient. She has required several analgesics here in the emergency department intravenously. Patient does desire to stay here for further management of her symptoms. Case discussed with the hospitalist. Please refer to further documentation regarding her stay. CT ABDOMEN & PELVIS Without Contrast: Comparison: CT abdomen and pelvis 08/21/18. Obstructing 8 mm left UPJ stone causing mild hydronephrosis of the left kidney. Additional punctate nonobstructing left kidney stone. Nonobstructing right kidney upper pole stone measuring 6 mm. No right-sided hydronephrosis. Normal appendix. Diverticulosis without diverticulitis. No bowel obstruction. Liver, gallbladder, spleen, pancreas, adrenal glands, urinary bladder are unremarkable. Hysterectomy. Degenerative disc disease in the lumbar spine. Osteopenia. Small fat-containing umbilical hernia. Right lateral abdominal wall hernia containing fat; hernia defect measures 1.6 cm (series 2, image 46). Radiologist: Andrade Brady M.D. Study ready at 22:54 and initial results transmitted at 00:15 .
[2021-04-11] MEDS ORDERED: cefTRIAXone SODIUM 1,000 MG/50 ML BAG IV STA (01:02)
--- NOTE | 2021-04-11 01:05 | History & Physical Report ---
Date of Service April 11, 2021 Assessment & Plan (1) Urinary tract obstruction due to kidney stone: Plan: Mrs. Aragon is a 60 yo woman with a long history of calcium oxalate nephrolithiasis who is being admitted for an 8mm obstructing stone at the left UPJ with associated mild hydronephrosis. - CT abdomen and pelvis showed 8mm obstructing stone at left UPJ - Rocephin 1 gram given on admission for infection prevention in the setting of obstructive nephrolithiasis. Patient afebrile, WBC normal, UA contaminated, await urine culture. - urology consult placed - NPO in the event of potential procedure - IV hydration with NSS - flomax 0.4mg daily - IV Tylenol for mild-moderate pain, IV morphine for severe pain ordered prn - Zofran prn for nausea (2) Elevated serum creatinine: Plan: - Cr 1.32, baseline of 0.8 - continue IV NSS - likely post-renal due to known obstructing calculus - trend BMP (3) Aortic stenosis: Plan: - history of - murmur noted on exam (4) Depression: Plan: - continue home dose duloxetine (5) Hyperlipidemia: Plan: - continue home dose simvastatin Diet: NPO DVT ppx: SCDs, start chemo after procedure Dispo: Med/Surg Code: Full Code, I discussed with patient History of Present Illness Primary Care Provider: PETERSON Workman Mrs. Aragon is a 60 yo woman with a long history of calcium oxalate kidney stones who presented to the [facility] ED for sudden onset left flank pain that began on the evening of 04/10/21. She follows with Dr. Henry at [facility] - she had a known 5mm stone of the left kidney on last imaging. She reported painless hematuria 1 week ago that has since resolved. Several days ago she felt a "twinge" in her left flank. Today, all of a sudden, she experienced severe left flank pain. She endorses associated nausea/vomiting. No fevers/chills, dysuria or increased urinary frequency. She took a Flomax and oxycodone when the pain started at home, but vomited shortly there after. In the ED, she was afebrile with normal HR, BP and breathing on room air. CBC was normal. COVID 19 neg. Cr elevated to 1.30. UA showing +2 blood, neg nitrite, 2+ LE, neg bacteria, > 30 epithelial cells. Urine culture pending. CT scan of abdomen and pelvis showed an 8mm obstructing left sided kidney stone at the UPJ with associated mild hydronephrosis. She was given zofran 4mg, Toradol 15mg, morphine 6mg x 2, and 2 liters of NSS. Allergies Allergy/AdvReac Type Severity Reaction Status Date / Time atorvastatin Allergy Mild ACHINESS Verified 04/10/21 22:26 rosuvastatin Allergy Mild ACHINESS Verified 04/10/21 22:26 Home Medications Medication Instructions Recorded Confirmed Type duloxetine 20 mg capsule,delayed 20 mg PO HS 03/24/18 04/10/21 History release simvastatin 40 mg tablet 40 mg PO HS 04/10/21 04/10/21 History Past Med/Surg History Medical History (Updated 04/11/21 @ 01:21 by Maria Ines Mcdonald MD) Anxiety Aortic regurgitation Aortic stenosis Moderate (FOLLOWS WITH DR. HACKETT)- Murmur Hyperlipidemia Incisional hernia Right upper abdomen- from hysterectomy per pt. Kidney stones Lung nodule CURRENT ISSUE Surgical History History of cardiac cath 2007 (NO STENTS) History of colonoscopy History of cystoscopy STONE REMOVAL History of dilatation and curettage UTERINE ABLATION History of lithotripsy MULTIPLE History of tonsillectomy History of tooth extraction History of total abdominal hysterectomy and bilateral salpingo-oophorectomy Status post lung surgery Family History (Reviewed 12/20/20 @ 08:45 by Ezequiel Hackett Jr, MD, [facility]) Family/Other Family history of diabetes mellitus Social History Smoking Status: Former smoker Cigarettes Per Day: 20-40; Second Hand Exposure: No; Hx Alcohol Use: Yes Alcohol type: wine Hx Substance Use: No Preferred Language: Indonesian Communication Ability: Effective Visual Impairment: No Limitations Hearing Ability: Normal Geriatric Physician Required: No Beliefs That Will Affect Care: None Current Living Situation: Spouse Other Information That Helps Us Care for You: No Feels Safe at Home: Yes Safety Concerns: Feels Safe At This Time Assistive Devices: Glasses Review of Systems Review of Systems: All systems reviewed & are unremarkable except as noted in HPI & below Physical Exam Constitutional: WD/WN, vitals as above cooperative; no acute distress Eyes: + anicteric sclerae ENMT: external ear and nose normal, oropharynx normal Neck: normal visual inspection and trachea midline Respiratory: normal respiratory effort, lungs clear to auscultation no cough Cardiovascular: Rate/Rhythm: regular rate and regular rhythm Heart Sounds: normal S1, normal S2 and + murmur (systolic ejection ) Extremities: no pedal edema Gastrointestinal (Abdomen): + CVA tenderness on the left Musculoskeletal: Head/Neck/Chest: normocephalic and head atraumatic Skin: no rashes, warm and dry Neurologic: moves all extremities Psychiatric: A+Ox3, euthymic affect Results & Data Results & Data ([facility]) Vital Signs (Past 12 Hours) Vital Signs Temp Pulse Pulse Resp BP BP Pulse Ox 04/10/21 23:08 82 22 154/78 H 97 04/10/21 19:55 36.5 C 81 18 153/92 H 97 Supervising Physician Co-Signing Physician Notes Patient seen and examined, chart reviewed, case discussed wt Dr. Mcdonald and I agree with her assessment and plan as documented above. 60yo female with known history of nephrolithiasis presenting with the same. 8mm obstructing stone at UPJ Afebrile, HD stable, nontoxic in appearance Management with IVF, pain control, antiemetics Urology consultation appreciated Remainder as above Resident Activity Tracking Resident Involvement: Resident Care Provided Care Provided: Adult Hospital Medicine
[2021-04-11] MEDS ORDERED: MoRPHine SULFATE 2 MG/ML CARP IV PRN (02:52)
[2021-04-11] MEDS ORDERED: ONDANSETRON INJ 2 MG/ML 2 ML VIAL IV PRN ×2 (02:52→08:40)
[2021-04-11] MEDS: ACETAMINOPHEN 1,000 MG/100 ML VIAL IV PRN ×2 (03:23→18:21)
--- NOTE | 2021-04-11 07:22 | CT Scan Report ---
CT abd pelvis wo con CLINICAL HISTORY: LEFT FLANK PAIN, KNOWN 5 MM STONE COMPARISON STUDY: 08/21/2018 and abdomen radiograph from 04/26/2020 CT DOSE: 584.34 mGy.cm TECHNIQUE: Standard CT of the Abdomen and Pelvis was performed without IV contrast. The patient did not receive oral contrast. A dose lowering technique was utilized adhering to the principles of GIULIANA Daugherty. FINDINGS: Lung base: The lung bases are clear. There is aortic valve calcification. Abdominal cavity: There is no evidence for abdominal mass, adenopathy or ascites. Liver: The liver is homogeneous in attenuation on these limited noncontrast images.. Spleen: The spleen is homogeneous in attenuation on these limited noncontrast images. Pancreas: The pancreas is homogeneous in attenuation on these limited noncontrast images. Gall Bladder: The gallbladder is well distended with no evidence for cholelithiasis, wall thickening or pericholecystic edema.. Adrenal glands: The adrenal glands are normal in size and attenuation on these limited noncontrast im ages. Kidneys: There is mild swelling of the left kidney when compared to the right with perinephric strand ing present. There is moderate left-sided hydronephrosis with a 6 mm calculus present at the left UPJ which is causing the obstruction present. No other left sided renal or ureteral calculi are identifi ed. There is an approximately 7 mm nonobstructing right renal calculus. There is no right-sided hydro nephrosis. There is no evidence for gross renal mass, calculus or hydronephrosis bilaterally. Bowel: There is a small sliding-type hiatal hernia. The bowel loops are normally placed within the ab domen and pelvis without evidence for dilatation or obstruction. There is no evidence for mass lesion . There is mild diverticulosis of the sigmoid colon without evidence for diverticulitis. There are no inflammatory changes present. There is no evidence for free air. The appendix is not visualized. Bladder: There is no evidence for focal bladder wall thickening, calculus or diverticulum. : There is no evidence for pelvic mass or adenopathy. Vasculature: There is no evidence for focal aneurysmal dilatation of the abdominal aorta. Osseous structures: There is no acute osseous pathology. IMPRESSION: 1. 6 mm left UPJ calculus producing moderate left-sided hydronephrosis. 2. There is also a nonobstructing 7 mm right renal calculus. 3. Additional nonacute findings are delineated above. ACT 112: Negative or not required by law. Electronically signed by: Julius Kilgore M.D. 04/11/2021 7:20 AM
--- NOTE | 2021-04-11 07:53 | Billing Data ---
Date of Service April 11, 2021 Coding Level of Care Code 99778 Initial Inpt Care Lvl 2
[2021-04-11 08:01] LABS: Red Blood Count 3.64 M/uL (4.2-5.4); White Blood Count 5.33 K/uL (4.8-10.8)
[2021-04-11 08:02] LABS: Basophils # (auto) 0.01 K/uL (0-0.2); Basophils % (auto) 0.2 %; Eosinophils # (auto) 0.04 K/uL (0-0.5); Eosinophils % (auto) 0.8 %; Hematocrit (blood only) 34.7 % (37-47); Hemoglobin 11.3 g/dL (12.0-16.0); Immature Granulocytes # (auto) 0.01 K/uL (0.00-0.02); Immature Granulocytes % (auto) 0.2 %; Lymphocytes % (auto) 22.5 %; Mean Corpuscular Hgb Conc 32.6 g/dL (32-36); Mean Corpuscular Volume 95.3 fL (80-100); Mean Platelet Volume 9.8 fL (7.4-10.4); Monocytes # (auto) 0.64 K/uL (0.11-0.59); Neutrophils # (auto) 3.43 K/uL (1.4-6.5); Neutrophils % (auto) 64.3 %; Platelet Count 195 K/uL (130-400); RDW Coefficient of Variation 13.2 % (11.5-14.5); RDW Standard Deviation 46.5 fL (36.4-46.3)
--- NOTE | 2021-04-11 08:16 | Anesthesiology Consultation ---
Date of Service April 11, 2021 Assessment & Plan (1) Encounter for pre-operative examination: Chart Review Chart Review: Acceptable Risk for Surgery and Patient NOT seen in Pre Admission Testing covid neg 04/11/21 Consults Requested none History Surgery Operation Date: 04/11/21 09:40 Proposed Procedures p Cystoscopy, Left Stent Placement - Austin Henry MD Height/Weight Height: 5 ft 4 in Weight: 86.5 kg Allergies Allergy/AdvReac Type Severity Reaction Status Date / Time atorvastatin Allergy Mild ACHINESS Verified 04/10/21 22:26 rosuvastatin Allergy Mild ACHINESS Verified 04/10/21 22:26 Medications Home Medications Medication Instructions Recorded Confirmed Last Taken duloxetine 20 mg capsule,delayed 20 mg PO HS 03/24/18 04/10/21 04/09/21 release simvastatin 40 mg tablet 40 mg PO HS 04/10/21 04/10/21 04/09/21 Active Medications Generic Name Dose Route Start Last Admin Trade Name Freq PRN Reason Stop Dose Admin Sodium Chloride 1,000 mls @ 100 mls/hr 04/10/21 23:45 04/11/21 07:40 Nss 1000ml IV 05/10/21 23:44 250 mls/hr .Q10H SAMUEL Administration Acetaminophen 1,000 mg in 100 mls @ 400 mls/hr 04/11/21 02:52 04/11/21 03:40 Ofirmev IV 04/14/21 02:51 Infused Q8H PRN Infusion Pain Ondansetron HCl 4 mg 04/11/21 02:52 04/11/21 03:23 Ondansetron Inj 2 Mg/Ml 2 Ml Vial IV 05/11/21 02:51 4 mg Q6H PRN Administration Nausea NPO Date Last Intake of Fluids: 04/10/21 Time Last Intake of Fluids: 23:59 Date Last Intake of Solids: 04/10/21 Time Last Intake of Solids: 23:59 Past Medical History Medical History (Updated 04/11/21 @ 08:20 by Joselito Pichardo MD) Anxiety Aortic regurgitation Aortic stenosis Moderate (FOLLOWS WITH DR. HACKETT)- Murmur Encounter for pre-operative examination Hyperlipidemia Incisional hernia Right upper abdomen- from hysterectomy per pt. Kidney stones Lung nodule CURRENT ISSUE Past Family History Family History Family/Other Family history of diabetes mellitus Past Surgical History Surgical History History of cardiac cath 2008 (NO STENTS) History of colonoscopy History of cystoscopy STONE REMOVAL History of dilatation and curettage UTERINE ABLATION History of lithotripsy MULTIPLE History of tonsillectomy History of tooth extraction History of total abdominal hysterectomy and bilateral salpingo-oophorectomy Status post lung surgery Social History Smoking Status: Former smoker tobacco type: cigarettes Smoking cigarettes per day: 20-40 Hx Alcohol Use: Yes Alcohol type: wine alcohol intake frequency: holidays/special occasions only Hx Substance Use: No substance use type: does not use Physical Exam Vital Signs Last Vital Signs Temp 36.8 C 04/11/21 07:43 Pulse 80 04/11/21 07:43 Resp 16 04/11/21 07:43 BP 94/55 L 04/11/21 07:43 Pulse Ox 98 04/11/21 07:43 Testing Laboratory Results 04/11/21 07:24 Urine Color Yellow 04/10/21 Unknown Urine Appearance Clear (Clear) 04/10/21 Unknown Urine pH 5.0 (4.5-7.5) 04/10/21 Unknown Ur Specific [place] 1.023 (1.000-1.030) 04/10/21 Unknown Urine Protein Negative (Negative) 04/10/21 Unknown Urine Glucose (UA) Negative (Negative) 04/10/21 Unknown Urine Ketones 2+ (Negative) H 04/10/21 Unknown Urine Nitrite Negative (Negative) 04/10/21 Unknown Ur Leukocyte Esterase 2+ (Negative) H 04/10/21 Unknown Urine WBC (Auto) >30 /hpf (0-5) H 04/10/21 Unknown Urine RBC (Auto) 5-10 /hpf (0-4) H 04/10/21 Unknown U Hyaline Cast (Auto) 1-5 /lpf (0-5) 04/10/21 Unknown U Epithel Cells (Auto) >30 /lpf (0-5) H 04/10/21 Unknown Urine Bacteria (Auto) Negative (Negative) 04/10/21 Unknown Echocardiogram Date: 12/29/20 Normal biv systolic function. Mild LVH Moderate to severe LILLIAN 0.8cm2 EF 65-70% Grade 1 DD. Other Testing Abdominal CT scan: IMPRESSION: 1. 6 mm left UPJ calculus producing moderate left-sided hydronephrosis. 2. There is also a nonobstructing 7 mm right renal calculus. 3. Additional nonacute findings are delineated above.
--- NOTE | 2021-04-11 08:19 | Urology Consultation ---
Date of Consultation April 11, 2021 Assessment & Plan (1) Calculus of proximal left ureter: Obstructing left proximal ureteral calculus Plan for cystoscopy left ureteral stent placement todaythe procedure, risks, benefits, expectations were reviewed She is in agreement with moving forward, we will then return next week to try to definitively treat the stone. She also has a right-sided stone which we will have to address in the future She has received ceftriaxone which should cover her adequately through the perioperative time Consent is on the chart History of Present Illness Attending Physician: Elio Oh MD History of Present Illness 60-year-old female with a long history of kidney stones known to us as an outpatient Started developed significant left flank pain earlier this week Attempted to pass the stone at home but eventually the pain became significant enough that it required an ER visit She does believe she passed a small stone 1 to 2 weeks ago No fevers or chills Nausea and vomiting accompanied the pain She reports that the pain comes and goes in waves of severity CT reviewed showing a stone at the left UPJ with moderate hydronephrosis She does have an increase in creatinine Allergies Allergy/AdvReac Type Severity Reaction Status Date / Time atorvastatin Allergy Mild ACHINESS Verified 04/10/21 22:26 rosuvastatin Allergy Mild ACHINESS Verified 04/10/21 22:26 Home Medications Medication Instructions Recorded Confirmed Type duloxetine 20 mg capsule,delayed 20 mg PO HS 03/24/18 04/10/21 History release simvastatin 40 mg tablet 40 mg PO HS 04/10/21 04/10/21 History Patient History Medical History Anxiety Aortic regurgitation Aortic stenosis Moderate (FOLLOWS WITH DR. HACKETT)- Murmur Hyperlipidemia Incisional hernia Right upper abdomen- from hysterectomy per pt. Kidney stones Lung nodule CURRENT ISSUE Surgical History History of cardiac cath 2007 (NO STENTS) History of colonoscopy History of cystoscopy STONE REMOVAL History of dilatation and curettage UTERINE ABLATION History of lithotripsy MULTIPLE History of tonsillectomy History of tooth extraction History of total abdominal hysterectomy and bilateral salpingo-oophorectomy Status post lung surgery Family History Family/Other Family history of diabetes mellitus Social History Smoking Status: Former smoker Cigarettes Per Day: 20-40; Second Hand Exposure: No; Hx Alcohol Use: Yes Alcohol type: wine Hx Substance Use: No Preferred Language: Swedish Communication Ability: Effective Visual Impairment: No Limitations Hearing Ability: Normal Digital Imaging Technician Required: No Beliefs That Will Affect Care: None Current Living Situation: Spouse Other Information That Helps Us Care for You: No Feels Safe at Home: Yes Safety Concerns: Feels Safe At This Time Assistive Devices: None Review of Systems Constitutional: no fever, no chills and no fatigue Eyes: no worsening vision Ear, Nose, Mouth, Throat: no facial pain and no pain with swallowing Respiratory: no cough and no dyspnea Cardiovascular: no chest pain and no palpitations Gastrointestinal: + abdominal pain, + nausea and + vomiting Genitourinary: no dysuria, no difficulty urinating, no urinary frequency and no hematuria Musculoskeletal: no back pain Integumentary: no rash and no urticaria Neurologic: no gait abnormality and no unsteadiness Psychiatric: no behavioral changes and no depression Endocrine: no fatigue Physical Exam Constitutional: well developed and well nourished Neck: neck nontender Respiratory: normal respiratory effort; no respiratory distress and does not use accessory muscles Cardiovascular: Rate/Rhythm: regular rate Vessels: radial pulses present Extremities: no edema Gastrointestinal (Abdomen): Inspection/Auscultation: abdomen normal to inspection Percussion/Palpation: abdomen soft; abdomen nontender and no guarding Musculoskeletal: Head/Neck/Chest: normocephalic and head atraumatic Extremities: extremities normal to inspection Skin: no rashes and no lesions Trauma: no evidence of skin trauma Neurologic: awake; not obtunded Speech / Cognition: normal speech Motor/Sensory: no tremor Psychiatric: Orientation: alert and oriented x 3 Lymphatic: no lymphadenopathy Results & Data ([facility]) Vital Signs (Past 12 Hours) Vital Signs Temp Pulse Resp BP BP Pulse Ox 04/11/21 07:43 36.8 C 80 16 94/55 L 98 04/11/21 02:54 36.4 C L 83 16 133/78 94 04/11/21 01:00 83 97 04/10/21 23:08 82 22 154/78 H 97 PG Care Time/CCT Total # of Minutes Spent Total Time Spent with Patient: Total time spent is greater than 50% in coordination of care (as documented) at patient's floor/unit and/or counseling patient: Coding Level of Care Code 11593 Inpt Consult Level 3 Diagnoses Calculus of proximal left ureter N20.1
[2021-04-11 08:24] LABS: BUN Creatinine Ratio 16.2 (10-20); Calcium 7.2 mg/dl (8.5-10.1); Creatinine Clr Calc Pharmacy 51.6 ml/min; Est GFR (African American) 54.5 ml/min; Potassium 4.2 mmol/L (3.5-5.1)
[2021-04-11] MEDS ORDERED: LIDOCAINE 2% 2 ML VIAL/AMP(20MG/ML) INFIL ONE (08:27)
[2021-04-11] MEDS ORDERED: PROPOFOL IV EMULSION 10 MG/ML 20 ML VIAL IV ONE (08:27)
[2021-04-11] MEDS ORDERED: fentaNYL citrate 100 MCG/2 ML VIAL ONE (08:27)
[2021-04-11] MEDS ORDERED: ONDANSETRON INJ 2 MG/ML 2 ML VIAL ONE (08:27)
[2021-04-11] MEDS ORDERED: KETOROLAC 30 MG/ML VIAL ONE (08:27)
[2021-04-11] MEDS ORDERED: MEPERIDINE HCL 25 MG/ML CARP/VIAL IV PRN (08:40)
[2021-04-11] MEDS ORDERED: PHENYLEPHRINE 100MCG/ML 5ML SYR IV PRN (08:40)
[2021-04-11] MEDS ORDERED: LABETALOL HCL IV 5 MG/ML 20ML IV PRN (08:40)
[2021-04-11] MEDS ORDERED: fentaNYL citrate 100 MCG/2 ML VIAL IV PRN (08:40)
[2021-04-11] MEDS ORDERED: ATROPINE SULFATE 0.1 MG/ML 10ML SYR IV PRN (08:40)
[2021-04-11] MEDS ORDERED: HYDROmorphone INJ 1 MG/ML SYRINGE IV PRN (08:40)
[2021-04-11] MEDS ORDERED: SCOPOLAMINE 1 MG TDSY TD ONE ×2 (08:40)
[2021-04-11] MEDS ORDERED: ePHEDrine sulfate 50 MG/ML AMP IV PRN (08:40)
[2021-04-11] MEDS ORDERED: SCOPOLAMINE 1 MG TDSY TD SCH (08:45)
--- NOTE | 2021-04-11 09:12 | Operative Report ---
PG Post Operative Report Pre & Post Diagnosis Operation Date: 04/11/21 09:40 Pre-Op Diagnosis: Left kidney stone Post-Op Diagnosis: Left kidney stone I identified the patient and participated in the time-out.: Yes Procedure Operation Date: 04/11/21 09:40 Actual Procedures p Cystoscopy, Left Stent Placement(Left) - Austin Henry MD Surgeon Chris Henry MD Branch Sales And Service Representative none Estimated Blood Loss 0 Findings Consistent with Post-Op Diagnosis Specimens none Description of Procedure The patient was identified in the preoperative holding area, appropriate informed consents were reviewed and completed and the patient was transferred to the operative suite. Upon arrival, appropriate antibiotics and anesthesia were administered and the patient was placed in dorsal lithotomy position and prepped and draped in sterile fashion. Begin the case I passed a 22 Romansh cystoscope inspection revealed a healthy- appearing bladder with ureteral orifices in orthotopic position. Initial fluoroscopic evaluation revealed a clearly identifiable left proximal ureteral calculus. I then intubated the left ureter and watched a wire advanced beyond the stone and into the kidney. The stone did seem to move retrograde into the renal pelvis. I then placed a 6 Romansh by 24 cm double-J stent seeing a good curl in the kidney as well as the bladder. The case was concluded and she was reversed of anesthesia and taken to the recovery room in stable condition. I attest to the content of the Intraoperative Record and any orders documented therein. Any exceptions are noted below.
--- NOTE | 2021-04-11 09:31 | Anesthesiology Progress Note ---
Date of Service April 11, 2021 Anesthesia Post Procedure Vital Signs Vital Signs: Temp Pulse Pulse Pulse Resp BP BP 04/11/21 09:25 69 12 04/11/21 09:16 36.1 C L 73 18 04/11/21 08:28 36.4 C L 75 16 04/11/21 07:43 36.8 C 80 16 04/11/21 02:54 36.4 C L 83 16 04/11/21 01:00 83 04/10/21 23:08 82 22 154/78 H 04/10/21 19:55 36.5 C 81 18 153/92 H BP Pulse Ox 04/11/21 09:25 107/67 98 04/11/21 09:16 96/64 L 92 04/11/21 08:28 119/66 97 04/11/21 07:43 94/55 L 98 04/11/21 02:54 133/78 94 04/11/21 01:00 97 04/10/21 23:08 97 04/10/21 19:55 97 Pain Intensity Flank: Pain Intensity: 3 Transfer of Care Handoff Completed per policy Notes Mental Status: alert / awake / arousable Patient Amnestic to Procedure: Yes Nausea / Vomiting: adequately controlled Pain: adequately controlled Airway Patency, RR, SpO2: stable & adequate BP & HR: stable & adequate Hydration State: stable & adequate Anesthetic Complications: no major complications apparent and Pt Satisfied with anesthetic care
--- NOTE | 2021-04-11 09:34 | Fluoroscopy Report ---
FL KUB CLINICAL HISTORY: Cystoscopy stent placement for left-sided stone COMPARISON STUDY: CT of the abdomen and pelvis from 04/10/2021 FLUOROSCOPY TIME: 3 seconds. FLUOROSCOPIC IMAGES: 3 FINDINGS: Initial marketing operations analyst film demonstrates a calculus in the region of the left UPJ or proximal ureter there is subsequent placement of a double-J ureteral stent. IMPRESSION: Status post stent placement. ACT 112: Negative or not required by law. Electronically signed by: Julius Kilgore M.D. 04/11/2021 9:33 AM
--- NOTE | 2021-04-11 09:56 | Hospitalist Progress Note ---
Date of Service April 11, 2021 Assessment & Plan (1) Urinary tract obstruction due to kidney stone: Plan: Mrs. Aragon is a 60 yo woman with a long history of calcium oxalate nephrolithiasis who is being admitted for an 8mm obstructing stone at the left UPJ with associated mild hydronephrosis. CT abdomen and pelvis showed 8mm obstructing stone at left UPJ - Rocephin 1 gram given on admission for infection prevention in the setting of obstructive nephrolithiasis. Patient afebrile, WBC normal, UA contaminated, await urine culture. urology consult placed NPO, IVF Pain control, antiemetics prn Continue flomax daily s/p Cystoscopy, Left Stent Placement(Left) - Austin Henry MD Will need f/u urology outpatient and treatment of R sided stone in future Down in OR this morning not yet back to room, but if feeling improved and wanting to go home, clear from Urology perspective for d/c later today (2) DEANGELO (acute kidney injury): Plan: 2nd to obstructing L sided stone as above IVF provided s/p cysto/stent Cr pre-op 1.25, and suspect improvement as stone treated Will see how she is doing this afternoon, but could repeat and d/c if wanting to go (3) Elevated serum creatinine: (4) Aortic stenosis: Plan: - history of - murmur noted on exam Decreased IVF from 250cc/hr as ordered on admission to 100cc/hr (already got 2L in ER) D/c post-op once taking PO to prevent overload (5) Depression: Plan: - continue home dose duloxetine (6) Hyperlipidemia: Plan: - continue home dose simvastatin Diet: NPO for OR this morning DVT ppx: SCDs, Possible d/c this afternoon vs tomorrow morning Admission and Anticipated Discharge Date Admission Date: April 11, 2021 Subjective BRIDGE NOTE, ADMIT AFTER MIDNIGHT Results & Data Results & Data ([facility]) Vital Signs (Past 12 Hours) Vital Signs Temp Pulse Pulse Resp BP BP Pulse Ox 04/11/21 09:44 73 12 107/72 94 04/11/21 09:35 36.4 C L 73 12 103/72 93 04/11/21 09:25 69 12 107/67 98 04/11/21 09:16 36.1 C L 73 18 96/64 L 92 04/11/21 08:28 36.4 C L 75 16 119/66 97 04/11/21 07:43 36.8 C 80 16 94/55 L 98 04/11/21 02:54 36.4 C L 83 16 133/78 94 04/11/21 01:00 83 97 04/10/21 23:08 82 22 154/78 H 97 Laboratory Results 04/11/21 04/11/21 04/11/21 Range/Units Unknown 07:24 07:24 WBC 5.33 (4.8-10.8) K/uL RBC 3.64 L (4.2-5.4) M/uL Hgb 11.3 L D (12.0-16.0) g/dL Hct 34.7 L (37-47) % MCV 95.3 (80-100) fL MCH 31.0 (25-34) pg MCHC 32.6 (32-36) g/dL RDW Std Deviation 46.5 H (36.4-46.3) fL RDW Coeff of Leyla 13.2 (11.5-14.5) % Plt Count 195 (130-400) K/uL MPV 9.8 (7.4-10.4) fL Immature Gran % (Auto) 0.2 % Neut % (Auto) 64.3 % Lymph % (Auto) 22.5 % Freeborn % (Auto) 12.0 % Eos % (Auto) 0.8 % Baso % (Auto) 0.2 % Neut # (Auto) 3.43 (1.4-6.5) K/uL Lymph # (Auto) 1.20 (1.2-3.4) K/uL Freeborn # (Auto) 0.64 H (0.11-0.59) K/uL Eos # (Auto) 0.04 (0-0.5) K/uL Baso # (Auto) 0.01 (0-0.2) K/uL Immature Gran # (Auto) 0.01 (0.00-0.02) K/uL Sodium 143 (136-145) mmol/L Potassium 4.2 (3.5-5.1) mmol/L Chloride 115 H (98-107) mmol/L Carbon Dioxide 24 (21-32) mmol/L Anion Gap 5.0 (3-11) BUN 20 H (7-18) mg/dl Creatinine 1.25 H (0.6-1.2) mg/dl Est Cr Clr Drug Dosing 51.6 ml/min Est GFR ( Amer) 54.5 ml/min Est GFR (Non-Af Amer) 47.0 ml/min BUN/Creatinine Ratio 16.2 (10-20) Glucose 97 (70-99) mg/dl Calcium 7.2 L D (8.5-10.1) mg/dl Urine Color Urine Appearance (Clear) Urine pH (4.5-7.5) Ur Specific Alfred (1.000-1.030) Urine Protein (Negative) Urine Glucose (UA) (Negative) Urine Ketones (Negative) Urine Blood (Negative) Urine Nitrite (Negative) Urine Bilirubin (Negative) Urine Urobilinogen (Negative) Ur Leukocyte Esterase (Negative) Urine WBC (Auto) (0-5) /hpf Urine RBC (Auto) (0-4) /hpf U Hyaline Cast (Auto) (0-5) /lpf U Epithel Cells (Auto) (0-5) /lpf Urine Bacteria (Auto) (Negative) SARS-CoV-2, RNA, NAAT NEGATIVE (NEGATIVE) 04/10/21 04/10/21 04/10/21 Range/Units Unknown 20:38 20:38 WBC 7.92 (4.8-10.8) K/uL RBC 4.53 (4.2-5.4) M/uL Hgb 14.3 (12.0-16.0) g/dL Hct 42.6 (37-47) % MCV 94.0 (80-100) fL MCH 31.6 (25-34) pg MCHC 33.6 (32-36) g/dL RDW Std Deviation 45.4 (36.4-46.3) fL RDW Coeff of Leyla 13.2 (11.5-14.5) % Plt Count 230 (130-400) K/uL MPV 9.6 (7.4-10.4) fL Immature Gran % (Auto) % Neut % (Auto) % Lymph % (Auto) % Freeborn % (Auto) % Eos % (Auto) % Baso % (Auto) % Neut # (Auto) (1.4-6.5) K/uL Lymph # (Auto) (1.2-3.4) K/uL Freeborn # (Auto) (0.11-0.59) K/uL Eos # (Auto) (0-0.5) K/uL Baso # (Auto) (0-0.2) K/uL Immature Gran # (Auto) (0.00-0.02) K/uL Sodium 140 (136-145) mmol/L Potassium 3.9 (3.5-5.1) mmol/L Chloride 107 (98-107) mmol/L Carbon Dioxide 26 (21-32) mmol/L Anion Gap 7.0 (3-11) BUN 21 H (7-18) mg/dl Creatinine 1.30 H (0.6-1.2) mg/dl Est Cr Clr Drug Dosing 48.9 ml/min Est GFR ( Amer) 52.0 ml/min Est GFR (Non-Af Amer) 44.9 ml/min BUN/Creatinine Ratio 16.2 (10-20) Glucose 116 H (70-99) mg/dl Calcium 9.1 (8.5-10.1) mg/dl Urine Color Yellow Urine Appearance Clear (Clear) Urine pH 5.0 (4.5-7.5) Ur Specific Alfred 1.023 (1.000-1.030) Urine Protein Negative (Negative) Urine Glucose (UA) Negative (Negative) Urine Ketones 2+ H (Negative) Urine Blood 2+ H (Negative) Urine Nitrite Negative (Negative) Urine Bilirubin Negative (Negative) Urine Urobilinogen Negative (Negative) Ur Leukocyte Esterase 2+ H (Negative) Urine WBC (Auto) >30 H (0-5) /hpf Urine RBC (Auto) 5-10 H (0-4) /hpf U Hyaline Cast (Auto) 1-5 (0-5) /lpf U Epithel Cells (Auto) >30 H (0-5) /lpf Urine Bacteria (Auto) Negative (Negative) SARS-CoV-2, RNA, NAAT (NEGATIVE) Diagnostic Findings Abdomen/Pelvis CT 04/10/21 22:17 CT abd pelvis wo con CLINICAL HISTORY: LEFT FLANK PAIN, KNOWN 5 MM STONE COMPARISON STUDY: 08/21/2018 and abdomen radiograph from 04/26/2020 CT DOSE: 584.34 mGy.cm TECHNIQUE: Standard CT of the Abdomen and Pelvis was performed without IV contrast. The patient did not receive oral contrast. A dose lowering technique was utilized adhering to the principles of ALARA. FINDINGS: Lung base: The lung bases are clear. There is aortic valve calcification. Abdominal cavity: There is no evidence for abdominal mass, adenopathy or ascites. Liver: The liver is homogeneous in attenuation on these limited noncontrast images.. Spleen: The spleen is homogeneous in attenuation on these limited noncontrast images. Pancreas: The pancreas is homogeneous in attenuation on these limited noncontrast images. Gall Bladder: The gallbladder is well distended with no evidence for cholelithiasis, wall thickening or pericholecystic edema.. Adrenal glands: The adrenal glands are normal in size and attenuation on these limited noncontrast images. Kidneys: There is mild swelling of the left kidney when compared to the right with perinephric stranding present. There is moderate left-sided hydronephrosis with a 6 mm calculus present at the left UPJ which is causing the obstruction present. No other left sided renal or ureteral calculi are identified. There is an approximately 7 mm nonobstructing right renal calculus. There is no right- sided hydronephrosis. There is no evidence for gross renal mass, calculus or hydronephrosis bilaterally. Bowel: There is a small sliding-type hiatal hernia. The bowel loops are normally placed within the abdomen and pelvis without evidence for dilatation or obstruction. There is no evidence for mass lesion. There is mild diverticulosis of the sigmoid colon without evidence for diverticulitis. There are no inflammatory changes present. There is no evidence for free air. The appendix is not visualized. Bladder: There is no evidence for focal bladder wall thickening, calculus or diverticulum. : There is no evidence for pelvic mass or adenopathy. Vasculature: There is no evidence for focal aneurysmal dilatation of the abdominal aorta. Osseous structures: There is no acute osseous pathology. IMPRESSION: 1. 6 mm left UPJ calculus producing moderate left-sided hydronephrosis. 2. There is also a nonobstructing 7 mm right renal calculus. 3. Additional nonacute findings are delineated above. ACT 112: Negative or not required by law. Electronically signed by: Julius Kilgore M.D. 04/11/2021 7:20 AM Abdomen Fluoroscopy 04/11/21 00:00 FL KUB CLINICAL HISTORY: Cystoscopy stent placement for left-sided stone COMPARISON STUDY: CT of the abdomen and pelvis from 04/10/2021 FLUOROSCOPY TIME: 3 seconds. FLUOROSCOPIC IMAGES: 3 FINDINGS: Initial inside sales person film demonstrates a calculus in the region of the left UPJ or proximal ureter there is subsequent placement of a double-J ureteral stent. IMPRESSION: Status post stent placement. ACT 112: Negative or not required by law. Electronically signed by: Julius Kilgore M.D. 04/11/2021 9:33 AM PG Care Time/CCT Total # of Minutes Spent Total Time Spent with Patient: Total time spent is greater than 50% in coordination of care (as documented) at patient's floor/unit and/or counseling patient: Coding Level of Care Code None Diagnoses Urinary tract obstruction due to kidney stone N20.0; N13.8 Elevated serum creatinine R79.89 Aortic stenosis I35.0 Depression F32.A Hyperlipidemia E78.5 DEANGELO (acute kidney injury) N17.9
[2021-04-11] MEDS ORDERED: PHENAZOPYRIDINE HCL 100 MG TAB PO PRN (11:11)
[2021-04-11] MEDS: TAMSULOSIN HCL 0.4 MG CAP PO SCH (11:31)
[2021-04-11] MEDS ORDERED: CHECK SCOPOLAMINE PATCH PLACEMENT SCH (16:00)
[2021-04-11] MEDS: CHECK SCOPOLAMINE PATCH PLACEMENT SCH ×2 (16:27→23:54)
[2021-04-11] MEDS ORDERED: ACETAMINOPHEN 325 MG TAB PO PRN (18:41)
[2021-04-12 07:40] LABS: Hematocrit (blood only) 35.3 % (37-47); Hemoglobin 11.3 g/dL (12.0-16.0); Mean Corpuscular Volume 96.7 fL (80-100); Mean Platelet Volume 10.1 fL (7.4-10.4); Platelet Count 219 K/uL (130-400); RDW Coefficient of Variation 13.7 % (11.5-14.5); Red Blood Count 3.65 M/uL (4.2-5.4); White Blood Count 4.94 K/uL (4.8-10.8)
[2021-04-12 08:22] LABS: Calcium 8.1 mg/dl (8.5-10.1); Creatinine Clr Calc Pharmacy 70.8 ml/min; Est GFR (Non-African American) 69.1 ml/min; Potassium 3.9 mmol/L (3.5-5.1)
[2021-04-12] MEDS: TAMSULOSIN HCL 0.4 MG CAP PO SCH (08:44)
--- NOTE | 2021-04-12 09:04 | Hospitalist Progress Note ---
Date of Service April 12, 2021 Assessment & Plan Admission and Anticipated Discharge Date Admission Date: April 11, 2021 Results & Data Results & Data ([facility]) Vital Signs (Past 12 Hours) Vital Signs Temp Pulse Pulse Resp BP Pulse Ox 04/12/21 07:55 37.0 C 73 16 124/78 95 04/12/21 02:18 36.8 C 68 16 112/75 94 04/11/21 22:20 36.7 C 76 16 99/66 L 92 Laboratory Results 04/12/21 04/12/21 Range/Units 06:55 06:55 WBC 4.94 (4.8-10.8) K/uL RBC 3.65 L (4.2-5.4) M/uL Hgb 11.3 L (12.0-16.0) g/dL Hct 35.3 L (37-47) % MCV 96.7 (80-100) fL MCH 31.0 (25-34) pg MCHC 32.0 (32-36) g/dL RDW Std Deviation 49.0 H (36.4-46.3) fL RDW Coeff of Leyla 13.7 (11.5-14.5) % Plt Count 219 (130-400) K/uL MPV 10.1 (7.4-10.4) fL Sodium 146 H (136-145) mmol/L Potassium 3.9 (3.5-5.1) mmol/L Chloride 116 H (98-107) mmol/L Carbon Dioxide 26 (21-32) mmol/L Anion Gap 5.0 (3-11) BUN 14 (7-18) mg/dl Creatinine 0.91 D (0.6-1.2) mg/dl Est Cr Clr Drug Dosing 70.8 ml/min Est GFR ( Amer) 80.0 ml/min Est GFR (Non-Af Amer) 69.1 ml/min BUN/Creatinine Ratio 15.0 (10-20) Glucose 83 (70-99) mg/dl Calcium 8.1 L (8.5-10.1) mg/dl PG Care Time/CCT Total # of Minutes Spent Total Time Spent with Patient: Total time spent is greater than 50% in coordination of care (as documented) at patient's floor/unit and/or counseling patient: Coding
--- NOTE | 2021-04-12 09:20 | Urology Progress Note ---
Date of Service April 12, 2021 Assessment & Plan (1) DEANGELO (acute kidney injury): (2) Urinary tract obstruction due to kidney stone: Plan: Overall she is doing well s/p ureteral stent placement. DEANGELO has resolved and she is not having significant pain with the stent in place. Appropriate for discharge home today. Urology will coordinate outpatient followup for definitive stone management. For stent pain would recommend tylenol, ibuprofen, pyridium, tamsulosin. We will sign off for now. Please contact urology with any questions or concerns. Admission and Anticipated Discharge Date Admission Date: April 11, 2021 Subjective Pt is post-op day #1 from cystoscopy and ureteral stent placement. Overall feeling well. No fevers or chills. Tolerating the stent without significant issues. Review of Systems Review of Systems: no fevers/chills Gastrointestinal: no nausea/vomiting Genitourinary: minimal flank pain Physical Exam Physical Exam: resting comfortably in bed, NAD. Respiratory: breathing comfortably on room air. Results & Data ([facility]) Vital Signs (Past 12 Hours) Vital Signs Temp Pulse Pulse Resp BP Pulse Ox 04/12/21 07:55 37.0 C 73 16 124/78 95 04/12/21 02:18 36.8 C 68 16 112/75 94 04/11/21 22:20 36.7 C 76 16 99/66 L 92 PG Care Time/CCT Total # of Minutes Spent Total Time Spent with Patient: Total time spent is greater than 50% in coordination of care (as documented) at patient's floor/unit and/or counseling patient: Coding Level of Care Code 40553 Subseq Hosp Care Lvl 1 Diagnoses DEANGELO (acute kidney injury) N17.9 Urinary tract obstruction due to kidney stone N20.0; N13.8
--- NOTE | 2021-04-12 11:14 | Discharge Summary ---
Date of Service April 12, 2021 Admission HPI Per Admitting Provider Mrs. Aragon is a 60 yo woman with a long history of calcium oxalate kidney stones who presented to the [facility] ED for sudden onset left flank pain that began on the evening of 04/10/21. She follows with Dr. Henry at [facility] Urology - she had a known 5mm stone of the left kidney on last imaging. She reported painless hematuria 1 week ago that has since resolved. Several days ago she felt a "twinge" in her left flank. Today, all of a sudden, she experienced severe left flank pain. She endorses associated nausea/vomiting. No fevers/chills, dysuria or increased urinary frequency. She took a Flomax and oxycodone when the pain started at home, but vomited shortly there after. In the ED, she was afebrile with normal HR, BP and breathing on room air. CBC was normal. COVID 19 neg. Cr elevated to 1.30. UA showing +2 blood, neg nitrite, 2+ LE, neg bacteria, > 30 epithelial cells. Urine culture pending. CT scan of abdomen and pelvis showed an 8mm obstructing left sided kidney stone at the UPJ with associated mild hydronephrosis. She was given zofran 4mg, Toradol 15mg, morphine 6mg x 2, and 2 liters of NSS. Admission Exam Per Admitting Provider Constitutional: WD/WN, vitals as above cooperative; no acute distress Eyes: + anicteric sclerae ENMT: external ear and nose normal, oropharynx normal Neck: normal visual inspection and trachea midline Respiratory: normal respiratory effort, lungs clear to auscultation no cough Cardiovascular: Rate/Rhythm: regular rate and regular rhythm Heart Sounds: normal S1, normal S2 and + murmur (systolic ejection ) Extremities: no pedal edema Gastrointestinal (Abdomen): + CVA tenderness on the left Musculoskeletal: Head/Neck/Chest: normocephalic and head atraumatic Skin: no rashes, warm and dry Neurologic: moves all extremities Psychiatric: A+Ox3, euthymic affect Principal Diagnosis Left Obstructing Nephrolithiasis Discharge Exam resting comfortably in bed, NAD. Constitutional WD/WN, vitals as above cooperative; no acute distress Eyes + anicteric sclerae ENMT external ear and nose normal, oropharynx normal Neck normal visual inspection and trachea midline Respiratory normal respiratory effort, lungs clear to auscultation Cardiovascular Rate/Rhythm: regular rate and regular rhythm Heart Sounds: + murmur (systolic) Extremities: no edema Gastrointestinal (Abdomen) Inspection/Auscultation: abdomen normal to inspection Percussion/Palpation: abdomen nontender and no guarding Musculoskeletal Head/Neck/Chest: head atraumatic Skin no rashes, warm and dry Neurologic moves all extremities and awake Psychiatric A+Ox3, euthymic affect Lymphatic no lymphadenopathy Discharge Data Allergies Allergy/AdvReac Type Severity Reaction Status Date / Time atorvastatin Allergy Mild ACHINESS Verified 04/10/21 22:26 rosuvastatin Allergy Mild ACHINESS Verified 04/10/21 22:26 Consultations 04/11/21 00:34 ED Decision to Admit Stat 04/11/21 02:52 Consult Urology Routine Procedures Performed Operation Date: 04/11/21 09:40 Actual Procedures p Cystoscopy, Left Stent Placement(Left) - Austin Henry MD Ordered Studies Abdomen/Pelvis CT 04/10/21 22:17 CT abd pelvis wo con CLINICAL HISTORY: LEFT FLANK PAIN, KNOWN 5 MM STONE COMPARISON STUDY: 08/21/2018 and abdomen radiograph from 04/26/2020 CT DOSE: 584.34 mGy.cm TECHNIQUE: Standard CT of the Abdomen and Pelvis was performed without IV contrast. The patient did not receive oral contrast. A dose lowering technique was utilized adhering to the principles of ALARA. FINDINGS: Lung base: The lung bases are clear. There is aortic valve calcification. Abdominal cavity: There is no evidence for abdominal mass, adenopathy or ascites. Liver: The liver is homogeneous in attenuation on these limited noncontrast images.. Spleen: The spleen is homogeneous in attenuation on these limited noncontrast images. Pancreas: The pancreas is homogeneous in attenuation on these limited noncontrast images. Gall Bladder: The gallbladder is well distended with no evidence for cholelithiasis, wall thickening or pericholecystic edema.. Adrenal glands: The adrenal glands are normal in size and attenuation on these limited noncontrast images. Kidneys: There is mild swelling of the left kidney when compared to the right with perinephric stranding present. There is moderate left-sided hydronephrosis with a 6 mm calculus present at the left UPJ which is causing the obstruction present. No other left sided renal or ureteral calculi are identified. There is an approximately 7 mm nonobstructing right renal calculus. There is no right- sided hydronephrosis. There is no evidence for gross renal mass, calculus or hydronephrosis bilaterally. Bowel: There is a small sliding-type hiatal hernia. The bowel loops are normally placed within the abdomen and pelvis without evidence for dilatation or obstruction. There is no evidence for mass lesion. There is mild diverticulosis of the sigmoid colon without evidence for diverticulitis. There are no inflammatory changes present. There is no evidence for free air. The appendix is not visualized. Bladder: There is no evidence for focal bladder wall thickening, calculus or diverticulum. : There is no evidence for pelvic mass or adenopathy. Vasculature: There is no evidence for focal aneurysmal dilatation of the abdo faustina aorta. Osseous structures: There is no acute osseous pathology. IMPRESSION: 1. 6 mm left UPJ calculus producing moderate left-sided hydronephrosis. 2. There is also a nonobstructing 7 mm right renal calculus. 3. Additional nonacute findings are delineated above. ACT 112: Negative or not required by law. Electronically signed by: Julius Kilgore M.D. 04/11/2021 7:20 AM Abdomen Fluoroscopy 04/11/21 00:00 FL KUB CLINICAL HISTORY: Cystoscopy stent placement for left-sided stone COMPARISON STUDY: CT of the abdomen and pelvis from 04/10/2021 FLUOROSCOPY TIME: 3 seconds. FLUOROSCOPIC IMAGES: 3 FINDINGS: Initial prosthetic aide film demonstrates a calculus in the region of the left UPJ or proximal ureter there is subsequent placement of a double-J ureteral stent. IMPRESSION: Status post stent placement. ACT 112: Negative or not required by law. Electronically signed by: Julius Kilgore M.D. 04/11/2021 9:33 AM Hospital Course (1) Urinary tract obstruction due to kidney stone: Mrs. Aragon is a 60 yo woman with a long history of calcium oxalate nephrolithiasis who is being admitted for an 6mm obstructing stone at the left UPJ with associated mild hydronephrosis. Also has 7mm nonobstructing R sided stone CT abdomen and pelvis showed 8mm obstructing stone at left UPJ Rocephin 1 gram given on admission for infection prevention in the setting of obstructive nephrolithiasis however patient afebrile, WBC wnl and UA did appear contaminated IVF, pain control, anti-emetics Urology consulted s/p Cystoscopy, Left Stent Placement(Left) - Austin Henry MD Discussed with urology, and no need for abx at d/c, urine cx still pending at time of discharge and will need followed up Will need f/u urology outpatient and treatment of R sided stone in future Continued pyridium, flomax at d/c. To use tylenol/nsaids prn pain Kidney function returned to normal prior to d/c (2) DEANGELO (acute kidney injury): 2nd to obstructing L sided stone as above Cr 1.3 on admission IVF provided, cysto/stent as above Cr improved back to 0.91 on am labs (3) Elevated serum creatinine: Resolved with tx as above (4) Aortic stenosis: - history of - murmur noted on exam Decreased IVF from 250cc/hr as ordered on admission to 100cc/hr (already got 2L in ER) and discontinued following coming back from OR no congestion on exam, on room air F/u PCP (5) Depression: continued home dose duloxetine at d/c (6) Hyperlipidemia: continued home dose simvastatin at d/c Discharged home. follow up with Urology for definitive stone treatment in future Total Time Total Time Spent Total Time Spent (In Minutes): 35 Discharge Plan Discharge Items Patient Disposition: Home - Self-Care Reason For Visit: KIDNEY STONE Discharge Diagnosis: Obstructing Kidney Stone Goals: You have been hospitalized for an urgent problem which required surgery. During your stay at [facility], we have made an effort to correct the problem that brought you to the hospital while keeping you as comfortable as possible. Surgery and medications were used to bring your condition under control and your discharge instructions will include directions for any medications you should take after leaving the hospital. Please make sure to follow the advice of your surgeon regarding follow up with the surgeon and with your primary care provider. Activity: Resume your previous activity Non-emergency contact: Primary Care Provider and Urologist Call non-emergency contact if: you have any medication questions, your symptoms worsen, your pain is not controlled and you have a fever Follow-up/Referrals: Austin Henry MD [Physician] - (Office will call patient with appointment date and time) Anjali Carpio CRNP [Primary Care Provider] - Diet: Heart Healthy Addtl Attending Provider Instructions: You have been hospitalized for a left sided obstructing kidney stone. Urology was consulted and you underwent cystoscopy and stent placement. You have been sent a prescription for pyridium to use as needed for bladder spasm and have also been sent flomax for stone expulsion. Your kidney function has returned to normal with IV fluids and stent placement. Per Urology, no need for continued antibiotics and there was no bacteria on your urine on analysis. You should have follow up with Urology and PCP in next week to monitor symptoms and discuss further treatment of stones. Please ensure to stay well hydrated and return to the ER for any increased pain, fever, or for any other symptoms concerning for you. It has been a pleasure being a part of the medical team providing for you while you have been hospitalized. Take care! Pending Studies at Discharge: Yes Studies:: Urine culture Stand-Alone Forms: My [facility] Medications and DC Order Prescriptions: New tamsulosin 0.4 mg Capsule 0.4 mg PO QAM Qty: 7 RF: 0 phenazopyridine [Pyridium] 100 mg Tablet 100 mg PO TID PRN (Reason: pain) Qty: 6 RF: 0 Continued duloxetine 20 mg Capsule,Delayed Release(Dr/Ec) 20 mg PO HS RF: 0 simvastatin 40 mg tablet 40 mg PO HS RF: 0 Discharge Orders: Discharge Order (Routine); Ordered 04/12/21 Ordered By: Aydee Walker Admission Data Admit Date/Time: 04/11/21 00:57 Attending Provider: Elio Oh Admit Provider: Maria Ines Mcdonald Primary Care Provider: Anjali Carpio Other Providers: Elio Oh ; Vanessa Garay Christophe T. Other Interventions: Discharge Summary Assessment (RN) Last Done: 04/12/21 11:24 Supervising Physician Co-Signing Physician Notes I supervised Aydee Walker PA-C on the care of this patient. I interviewed and examined the patient independently of her. The plan is as written in her note except for any following changes/exceptions: None Doing well today. Pain very well under control. Waiting for discharge on my arrival. Doing well and requests to leave. F/u with urology as outpatient. Coding Level of Care Code D/C DAY MANAGEMENT >30 MINS Diagnoses Urinary tract obstruction due to kidney stone N20.0; N13.8 DEANGELO (acute kidney injury) N17.9 Elevated serum creatinine R79.89 Aortic stenosis I35.0 Depression F32.A Hyperlipidemia E78.5
== END 2021-04-12 13:28 | disposition home or self-care (01) | DRG 661 ==
LOC: ED 19:52 → 3E 04-11 00:57 → SUATTDRO 04-11 00:57 → 3E 04-11 02:16

== ENCOUNTER 2025-04-04 00:20 | Observation (INO) ==
--- NOTE | 2025-04-04 00:26 | Emergency Department Note ---
History of Present Illness General Chief complaint: Kidney Stone Stated complaint: KIDNEY STONE Time Seen by Provider: 04/04/25 00:25 History of Present Illness This is a 64-year-old female who presents to the emergency department via private vehicle with complaints of "kidney stone". Patient does have a history of kidney stones, most recent CT scan abdomen/pelvis performed with urology dated 03/23/2025 showing 10 mm calculus in the right renal pelvis just above the uteropelvic junction. Associated urothelial thickening within the right renal pelvis and mild surrounding infiltration. Likely due to presence of the calculus. Patient presents this evening noting that she began with increasing pain to the right back/flank area that acutely worsened at 8:30 PM this evening. No fever. There is vomiting. Home Medications Medication Instructions Recorded Confirmed Type duloxetine 20 mg capsule,delayed 20 mg PO HS 03/24/18 04/04/25 History release letrozole 2.5 mg tablet 2.5 mg PO QPM 09/03/23 04/04/25 History simvastatin 40 mg tablet 40 mg PO QPM 09/04/24 04/04/25 History evolocumab 140 mg/mL subcutaneous 140 mg subcut UD 12/28/24 04/04/25 History pen injector (Repathnicole Mart) metoprolol succinate 50 mg 50 mg PO QPM 12/28/24 04/04/25 History tablet,extended release 24 hr acetaminophen 500 mg tablet 1,000 mg (2 x 500 mg) PO Q8 #30 02/05/25 04/04/25 Rx (Tylenol Extra Strength) tabs aspirin 81 mg capsule 81 mg PO DAILY 04/01/25 04/04/25 History meloxicam 15 mg tablet 15 mg PO DAILY 04/04/25 04/04/25 History tramadol 50 mg tablet 50 mg PO Q4H PRN Pain 04/04/25 04/04/25 History Allergies Allergy/AdvReac Type Severity Reaction Status Date / Time rosuvastatin Allergy Mild Achiness Verified 04/04/25 01:15 atorvastatin AdvReac Unknown Achiness Verified 04/04/25 01:15 anastrozole AdvReac achy joints Verified 04/04/25 01:15 Past Med/Surg History Problem List (Updated 04/04/25 @ 05:26 by Felix Cueva PA-C) Vomiting (Acute) Hydronephrosis (Acute) Calculus of renal pelvis (Acute) Acute right flank pain (Acute) Hydronephrosis of right kidney Encounter for pre-operative examination Bacteriuria Chronic UTI (urinary tract infection) S/P total left hip arthroplasty Family history of premature coronary artery disease Statin intolerance Statin myopathy Right ureteral calculus Malignant neoplasm of central portion of right breast in female, estrogen receptor positive (Chronic 08/15/22) Kidney stones Calculus of proximal left ureter (Acute) Calcium nephrolithiasis Multiple lung nodules on CT Hyperlipidemia Medical History Anxiety Aortic stenosis Hx of: s/p AVR 03/2024; Echo 09/23/24: Well seated AVR with nl hemodynamics Carotid artery stenosis Carotid duplex 12/2020: <50% R/L ICA stenosis Depression History of breast cancer (2022) Right, s/p mastectomy R 2022 History of COVID-19 05/06/21 (home test)- sinus congestion, headache, cough > resolved History of motion sickness History of recurrent UTIs Hyperlipidemia Incisional hernia Right upper abdomen (from hysterectomy per pt) Kidney stones Lung nodule Under surveillance Surgical History History of cardiac cath 2007- no stents 02/2024- no stents (single vessel mild nonocclusive LAD lesion, "otherwise coronaries are without disease) History of colonoscopy History of cystoscopy Stone removal History of dilatation and curettage Uterine ablation History of heart valve replacement (03/2024) AVR, [facility] History of lithotripsy Multiple History of partial mastectomy of right breast (11/23/22) Right breast leticia-heel burnisher guided partial mastectomy, Right sentinel lymph node biopsy History of tonsillectomy History of tooth extraction History of total abdominal hysterectomy and bilateral salpingo-oophorectomy (07/11/17) History of urologic surgery + stent Nausea and vomiting after administration of anesthetic agent Success with previous scope patch use per patient S/P total left hip arthroplasty 02/04/25 [facility] : MAC, SAB (L3-4) without issue Status post lung surgery 3+ years ago (to evaluated lower lobe nodule), "benign" Follows with [facility] pulmonary Family History Family/Other Family history of diabetes mellitus Father Coronary heart disease Dyslipidemia Hypertension Stroke COPD (chronic obstructive pulmonary disease) Dementia Mother Coronary heart disease Hypertension Dyslipidemia Stroke Brother Hypertension Dyslipidemia Status post ablation operation for arrhythmia Sister Coronary heart disease Dyslipidemia Hypertension Sister Stroke Sister Dyslipidemia Sister Dyslipidemia Son No problems noted. Other Clotting disorder No family history of adverse response to anesthesia Social History Smoking Status: Former smoker Tobacco Type: Cigarettes Age Started Using Tobacco: 16; Second Hand Exposure: No; Do You Dip or Chew Tobacco: No; Hx Alcohol Use: Yes Alcohol type: wine Hx Substance Use: No Preferred Language: Citizen Of [place] Communication Ability: Effective Visual Impairment: No Limitations Hearing Ability: Normal [employer] Required: No Beliefs That Will Affect Care: None marital status: Current Living Situation: Family Current Living Situation Comment: , SON AND 7 YR OLD GRANDCHILD current occupation: Ethics and compliance at [employer] How many Children do You have: 1 Feels Safe at Home: Yes Childhood Exposure to Second-Hand Smoke: No Diet: regular caffeine: Yes (1 cup of coffee in am) during the past year weight has: remained stable Assistive Devices: Contacts and Glasses Review of Systems A total of 10 systems reviewed and were otherwise negative Physical Exam Vital Signs Vital Signs - 24 hr 04/04/25 00:22 04/04/25 00:47 04/04/25 02:00 Temperature 36.5 C Temperature Source Temporal Artery Scan Pulse Rate 89 Pulse Rate [Apical] Pulse Rate [Finger] 65 Respiratory Rate 16 Respiratory Effort / Characteristics Non-Labored Spontaneous Respiratory Depth Normal Respiratory Pattern Regular Blood Pressure 150/83 H Blood Pressure [Left Arm] 154/109 H Blood Pressure Mean 105 Blood Pressure Mean [Left Arm] 124 Blood Pressure Position [Left Arm] Pulse Oximetry 98 96 97 Oxygen Delivery Method Room Air Room Air Room Air Sepsis Recent Fever Within 48 Hours No Sepsis New/Unexplained Change in Mental Status No Sepsis Action Taken by Nursing No Action Required 04/04/25 03:12 04/04/25 04:58 04/04/25 05:00 Temperature Temperature Source Pulse Rate 76 Pulse Rate [Apical] 71 Pulse Rate [Finger] 74 Respiratory Rate 14 15 Respiratory Effort / Characteristics Non-Labored Non-Labored Spontaneous Respiratory Depth Normal Normal Respiratory Pattern Regular Blood Pressure Blood Pressure [Left Arm] 116/80 111/74 Blood Pressure Mean Blood Pressure Mean [Left Arm] 92 86 Blood Pressure Position [Left Arm] Semi-fowlers Pulse Oximetry 93 96 Oxygen Delivery Method Room Air Room Air Sepsis Recent Fever Within 48 Hours Sepsis New/Unexplained Change in Mental Status Sepsis Action Taken by Nursing VITAL SIGNS - Vital signs and nursing notes were reviewed. Stable and afebrile. GENERAL -64-year-old female appearing her stated age who is in no acute distress but appears to be in pain. Communicates well with provider and answers questions appropriately. SKIN - Without rashes. No meningeal or petechial rash. HEAD - NC/AT. EYES - Sclera anicteric. NECK - No nuchal rigidity. LUNGS - CTA CARDIAC - RRR ABDOMEN - Abdominal contour normal without pulsations or visible masses. BS normoactive all four quadrants. No tenderness, palpable masses, hepatosplenomegaly, or ascites noted. EXTREMITIES - No clubbing or peripheral cyanosis. +5/5 strength noted in UE/LE bilaterally. PSYCH -alert, oriented and pleasant on exam. Course Administered Medications Ceftriaxone Sodium (Rocephin) 2,000 mg in 50 mls @ 100 mls/hr IV Q24H SAMUEL Stop: 04/14/25 03:59 Last Infusion: 04/04/25 04:52 Dose: Infused Documented By: Admin: 04/04/25 04:15 Dose: 100 mls/hr Documented By: CRISTIAN Potassium Chloride/Sodium Chloride (Normal Saline W/20 Meq Kcl) 20 meq in 1,000 mls @ 100 mls/hr IV .Q10H SAMUEL Stop: 04/04/25 23:44 Last Admin: 04/04/25 04:55 Dose: 100 mls/hr Documented By: IDRonit Discontinued Medications Hydromorphone HCl (Hydromorphone Inj 0.5 Mg/0.5 Ml Syr) 0.5 mg IV NOW STA Stop: 04/04/25 00:47 Last Admin: 04/04/25 00:50 Dose: 0.5 mg Documented By: DOT Hydromorphone HCl (Hydromorphone Inj 0.5 Mg/0.5 Ml Syr) 0.5 mg IV NOW STA Stop: 04/04/25 01:58 Last Admin: 04/04/25 02:01 Dose: 0.5 mg Documented By: DOT Sodium Chloride (Nss) 1,000 mls @ 999 mls/hr IV .Q1H1M ONE Stop: 04/04/25 01:46 Last Infusion: 04/04/25 01:53 Dose: Infused Documented By: Admin: 04/04/25 00:51 Dose: 999 mls/hr Documented By: DOT Ketorolac Tromethamine (Ketorolac Tromethamine 15 Mg/Ml Vial) 10 mg IV NOW ONE Stop: 04/04/25 01:58 Last Admin: 04/04/25 02:00 Dose: 10 mg Documented By: DOT Ondansetron HCl (Ondansetron Inj 2 Mg/Ml 2 Ml Vial) Confirm Administered Dose 4 mg .ROUTE .STK-MED ONE Stop: 04/04/25 00:44 Last Admin: 04/04/25 00:44 Dose: 4 mg Documented By: DOT Ondansetron HCl (Ondansetron Inj 2 Mg/Ml 2 Ml Vial) 4 mg IV NOW STA Stop: 04/04/25 01:58 Last Admin: 04/04/25 02:01 Dose: 4 mg Documented By: DOT Medical Decision Making Laboratory Data 04/04/25 00:37 04/04/25 00:37 Lab Results 04/04/25 Range/Units 00:37 WBC 5.72 (4.8-10.8) K/ul RBC 4.22 (4.20-5.40) M/uL Hgb 13.3 (12.0-16.0) g/dL Hct 40.4 (37.0-47.0) % MCV 95.7 (80.0-100.0) fL MCH 31.5 (25.0-34.0) pg MCHC 32.9 (32.0-36.0) g/dL RDW Std Deviation 45.3 (36.4-46.3) fL RDW Coeff of Leyla 12.9 (11.5-14.5) % Plt Count 257 (130-400) K/uL MPV 9.5 (9.4-12.4) fL Immature Gran % (Auto) 0.3 % Neut % (Auto) 45.5 % Lymph % (Auto) 37.1 % Saline % (Auto) 12.6 % Eos % (Auto) 4.0 % Baso % (Auto) 0.5 % Neut # (Auto) 2.60 (1.40-6.50) K/uL Lymph # (Auto) 2.12 (1.20-3.40) K/uL Saline # (Auto) 0.72 H (0.11-0.59) K/uL Eos # (Auto) 0.23 (0.00-0.50) K/uL Baso # (Auto) 0.03 (0.00-0.20) K/uL Immature Gran # (Auto) 0.02 (0.01-0.20) K/uL Sodium 139 (136-145) mmol/L Potassium 3.9 (3.5-5.1) mmol/L Chloride 105 (98-107) mmol/L Carbon Dioxide 29 (21-32) mmol/L Anion Gap 5 (3-11) BUN 19 (6-23) mg/dl Creatinine 0.87 (0.6-1.2) mg/dl Est Cr Clr Drug Dosing 68.1 ml/min eGFR 74.82 BUN/Creatinine Ratio 21.8 H (10-20) Glucose 113 H (70-99(Fasting)) mg/dl Calcium 9.4 (8.6-10.3) mg/dl Total Bilirubin 0.2 (0.2-1.0) mg/dl AST 18 (13-39) U/L ALT 11 (7-52) U/L Alkaline Phosphatase 83 (34-104) U/L Total Protein 7.2 (6.0-8.3) gm/dl Albumin 4.2 (3.4-5.0) gm/dl Globulin 3.0 (2.5-4.0) gm/dl Albumin/Globulin Ratio 1.4 (0.9-2) Urine Color Yellow Urine Appearance Clear (Clear) Urine pH 6.0 (4.5-7.5) Ur Specific [place] 1.029 (1.000-1.030) Urine Protein 2+ H (Negative) Urine Glucose (UA) Negative (Negative) Urine Ketones Trace H (Negative) Urine Blood 2+ H (Negative) Urine Nitrite Negative (Negative) Urine Bilirubin Negative (Negative) Urine Urobilinogen Negative (Negative) Ur Leukocyte Esterase Trace H (Negative) Urine WBC (Auto) 11-20 H (0-5) /hpf Urine RBC (Auto) 11-20 H (0-2) /hpf U Hyaline Cast (Auto) 0-2 (0-2) /lpf U Epithel Cells (Auto) 0-2 (0-2) /hpf Urine Bacteria (Auto) None Seen (None Seen) Urine Comment Imaging Data Radiologist's Impression: KUB X-Ray 04/04/25 00:46 EXAM: XR KUB/Abdomen 1 view CLINICAL HISTORY: Back pain, known 10mm kidney stone TECHNIQUE: X-ray images of the abdomen were obtained in supine position. COMPARISON: Prior US dated 04/04/[address] Abdomen dated 03/23/2025 reviewed. FINDINGS: Gas Pattern: Fecal loading at the ascending colon (Stable from prior CT). Gaseous distension of the ascending and transverse colon (Stable from prior CT). No evidence of bowel obstruction. Soft Tissues: A small radio-opaque calculus is seen at the confinement of the right renal shadow opposite to right transverse process of L2 vertebra (Stable). Soft tissues of the abdomen appear normal without evidence of masses. Liver, spleen, and kidneys are of normal size and position. Multiple bilateral plevic phleboli. Left total hip replacement. No device break, loosening or active osseous infection. Spondylodegenerative changes of the lumbar spine. IMPRESSION: 1. No evidence of acute bowel obstruction or other acute abdominal pathology. 2. Stable fecal loading and gaseous distension of the ascending and transverse colon. 3. Stable small radio-opaque calculus in the right kidney. 4. Left total hip replacement; no evidence of device break, loosening, or infection. 5. Spondylodegenerative changes of the lumbar spine. 6. Multiple bilateral pelvic phleboliths. 7. No significant interval changes. Electronically signed by Cornell Sanchez 04-04-2025 03:32 AM Renal Ultrasound 04/04/25 00:46 EXAM: US renal/blad retro comp CLINICAL HISTORY: Back pain, known 10 mm kidney stone. TECHNIQUE: A renal ultrasound was performed using grayscale imaging. COMPARISON: Prior CT Abdomen dated 03/23/2025 and US renal dated 02/24/2018 reviewed. FINDINGS: Right Kidney: The right kidney measures 10.3 cm in length. Right renal pelvis obstructing stone measuring 1.2 x 0.6 x 1.0cm with subsequent mild hydronephrosis (A new finding from prior US examination, stable from prior CT). Non-obstructing stone visualized at the upper pole of the right kidney measuring 0.5 x 0.2 x 0.4cm (A new finding from prior US examination). Resolution of the previously seen right renal lower pole stone. No cyst or masses were identified. Renal parenchymal echogenicity is normal. Cortical thickness: Within normal. Left Kidney: The left kidney measures 9.9cm. Non-obstructing stone visualized at the mid/lower pole of the left kidney measuring 0.6 x 0.4 x 0.5cm (Stable from prior US examination). The other stone at the lower calyx seen in the prior CT is not obvious in the current US examination. No cyst, hydronephrosis, or masses were identified. Renal parenchymal echogenicity is normal. Cortical thickness: Within normal. Renal pelvis within normal. Urinary bladder: Patient voided prior to exam. Normal wall thickness. No calculus or mass is noted in it. Left bladder jet visualized. The right bladder jet was not seen. The pre-void volume measures about =35 ml The post-void volume measures about = 12 ml. IMPRESSION: 1. Right renal pelvis obstructing stone measuring 1.2 x 0.6 x 1.0 cm with associated mild hydronephrosis (A new finding from prior US examination, stable from prior CT). 2. Non-obstructing right upper pole stone measuring 0.5 x 0.2 x 0.4 cm (new). 3. Non-obstructing left renal stone measuring 0.6 x 0.4 x 0.5 cm (stable). Electronically signed by Cornell Sanchez 04-04-2025 02:39 AM MDM Narrative Patient was seen and evaluated as above in room B12b. Review was performed of nursing notes and vital signs. I did review pertinent previous visits and patient history. After obtaining a thorough history and physical examination the above work up was performed. Patient presents to us today for right flank pain. She has a known 10 mm stone. She is in pain on exam and is vomiting. Options of care were discussed with the patient. IV access was established. Labs were drawn. Patient medicated with IV analgesics, IV antiemetics, IV fluids. KUB close ultrasound obtained. Results as above. There is no leukocytosis or concerning anemia. No evidence of kidney or liver failure. Urinalysis with white blood cells, leukocytes and red blood cells. No bacteria. No nitrites. I do believe that further evaluation and management in the inpatient setting is warranted noting ongoing need for analgesics secondary to pain and antiemetics for vomiting. Case discussed with the hospitalist service. Please refer to further documentation regarding her stay. In the evaluation and treatment of this patient the following differential diagnoses were entertained: UTI, pyelonephritis, bowel obstruction, kidney stone, among others Impression & Plan Acute right flank pain, Calculus of renal pelvis, Hydronephrosis, Vomiting Discharge Plan Visit Data Chief Complaint: Kidney Stone Stated Complaint: KIDNEY STONE ED Provider: Elva Conway ED Midlevel Provider: Felix Cueva Discharge Problem: Acute right flank pain, Calculus of renal pelvis, Hydronephrosis, Vomiting Patient Disposition: Admitted As Inpatient Condition: Good Forms Stand Alone Forms: My [employer] Prescriptions Prescriptions: No Action letrozole 2.5 mg tablet 2.5 mg PO QPM simvastatin 40 mg tablet 40 mg PO QPM duloxetine 20 mg Capsule,Delayed Release(Dr/Ec) 20 mg PO HS metoprolol succinate 50 mg tablet extended release 24 hr 50 mg PO QPM Repatha SureClick 140 mg/mL pen injector 140 mg subcut UD Patient Comments: every two weeks acetaminophen [Tylenol Extra Strength] 500 mg Tablet 1,000 mg PO Q8 Qty: 30 0RF meloxicam 15 mg tablet 15 mg PO DAILY tramadol 50 mg tablet 50 mg PO Q4H PRN (Reason: Pain) aspirin 81 mg Capsule 81 mg PO DAILY Referrals Referrals: Mckenzie Duffy [Primary Care Provider] -
[2025-04-04] MEDS: ONDANSETRON INJ 2 MG/ML 2 ML VIAL ONE (00:44)
[2025-04-04] MEDS: HYDROmorphone INJ 0.5 MG/0.5 ML SYR IV STA ×2 (00:50→02:01)
[2025-04-04] MEDS: SODIUM CHLORIDE 0.9% 1,000 ML IV ONE (00:51)
[2025-04-04 00:55] LABS: Appearance Urine Clear (Clear); Bacteria Urine Automated None Seen (None Seen); Cast Urine Automated 0-2 /lpf (0-2); Epithelial Cell Urine Auto 0-2 /hpf (0-2); Glucose Urine UA Negative (Negative)
[2025-04-04 00:59] LABS: Hematocrit (blood only) 40.4 % (37.0-47.0); Hemoglobin 13.3 g/dL (12.0-16.0); Immature Granulocytes # (auto) 0.02 K/uL (0.01-0.20); Immature Granulocytes % (auto) 0.3 %; Mean Corpuscular Hemoglobin 31.5 pg (25.0-34.0); Mean Corpuscular Volume 95.7 fL (80.0-100.0); Platelet Count 257 K/uL (130-400); RDW Standard Deviation 45.3 fL (36.4-46.3); Red Blood Count 4.22 M/uL (4.20-5.40); White Blood Count 5.72 K/ul (4.8-10.8)
[2025-04-04 01:17] LABS: Alanine Aminotransferase 11.0 U/L (7-52); Albumin Globulin Ratio 1.4 (0.9-2); Albumin Level 4.2 gm/dl (3.4-5.0); Alkaline Phosphatase 83.0 U/L (34-104); Anion Gap 5.0 (3-11); Bilirubin,Total 0.2 mg/dl (0.2-1.0); Blood Urea Nitrogen 19.0 mg/dl (6-23); Calcium 9.4 mg/dl (8.6-10.3); Carbon Dioxide 29.0 mmol/L (21-32); Chloride 105.0 mmol/L (98-107); Creatinine Clr Calc Pharmacy 68.1 ml/min; Globulin 3.0 gm/dl (2.5-4.0); Glucose 113.0 mg/dl (70-99(Fasting)); Potassium 3.9 mmol/L (3.5-5.1); Sodium 139.0 mmol/L (136-145); Total Protein 7.2 gm/dl (6.0-8.3)
[2025-04-04] MEDS: KETOROLAC TROMETHAMINE 15 MG/ML VIAL IV ONE (02:00)
[2025-04-04] MEDS: ONDANSETRON INJ 2 MG/ML 2 ML VIAL IV STA (02:01)
--- NOTE | 2025-04-04 02:40 | Ultrasound Report ---
EXAM: US renal/blad retro comp CLINICAL HISTORY: Back pain, known 10 mm kidney stone. TECHNIQUE: A renal ultrasound was performed using grayscale imaging. COMPARISON: Prior CT Abdomen dated 03/23/2025 and US renal dated 02/24/2018 reviewed. FINDINGS: Right Kidney: The right kidney measures 10.3 cm in length. Right renal pelvis obstructing stone measuring 1.2 x 0.6 x 1.0cm with subsequent mild hydronephrosis (A new finding from prior US examination, stable from prior CT). Non-obstructing stone visualized at the upper pole of the right kidney measuring 0.5 x 0.2 x 0.4cm (A new finding from prior US examination). Resolution of the previously seen right renal lower pole stone. No cyst or masses were identified. Renal parenchymal echogenicity is normal. Cortical thickness: Within normal. Left Kidney: The left kidney measures 9.9cm. Non-obstructing stone visualized at the mid/lower pole of the left kidney measuring 0.6 x 0.4 x 0.5cm (Stable from prior US examination). The other stone at the lower calyx seen in the prior CT is not obvious in the current US examination. No cyst, hydronephrosis, or masses were identified. Renal parenchymal echogenicity is normal. Cortical thickness: Within normal. Renal pelvis within normal. Urinary bladder: Patient voided prior to exam. Normal wall thickness. No calculus or mass is noted in it. Left bladder jet visualized. The right bladder jet was not seen. The pre-void volume measures about =35 ml The post-void volume measures about = 12 ml. IMPRESSION: 1. Right renal pelvis obstructing stone measuring 1.2 x 0.6 x 1.0 cm with associated mild hydronephrosis (A new finding from prior US examination, stable from prior CT). 2. Non-obstructing right upper pole stone measuring 0.5 x 0.2 x 0.4 cm (new). 3. Non-obstructing left renal stone measuring 0.6 x 0.4 x 0.5 cm (stable). Electronically signed by Cornell Sanchez 04-04-2025 02:39 AM
--- NOTE | 2025-04-04 03:34 | History & Physical Report ---
Date of Service April 04, 2025 Assessment & Plan (1) Hydronephrosis of right kidney: (2) Right nephrolithiasis: (3) Renal colic: (4) History of breast cancer: Plan The patient is a [age]-year-old female with past medical history including recurrent urinary tract infections, history of ureteral stones, statin intolerance, statin myopathy, right breast malignant neoplasm estrogen receptor positive, multiple lung nodules on CT, hyperlipidemia, hypertension, aortic stenosis status post AVR, carotid artery stenosis, and depression. She last saw urology on 03/15/2025, with plans for procedure on 04/13/2025. However, patient's pain worsened considerably over the past 24 hours, and she presents to the ED for assessment. CT scan of abdomen and pelvis on 03/23/2025 revealed kidneys being normal in size without hydronephrosis, and with a 10 mm calculus in right renal pelvis just above the ureteropelvic junction. Ultrasound performed in the emergency department this evening shows an obstructing right renal pelvis stone of 1.2 x 0.6 x 1.0 cm, and mild hydronephrosis. Urinalysis showed multiple red cells and white cells. From the ED patient received the following: Dilaudid 0.5 mg IV x 2, Toradol 10 mg IV x 1, Zofran 4 mg IV x 1, and normal saline 1 L fluid bolus. She did become mildly hypoxic, with pulse ox while she was asleep, dropping to 89% on room air. Obstructing right renal calculus/right hydronephrosis/renal colic- NPO Status post 1 L normal saline bolus in the ED Placed on NSS + KCl 20 mEq at 100 mL/h x 2 L Acetaminophen 1 g IV every 8 hours as needed for mild pain or fever Dilaudid 0.25 mg IV every 3 hours as needed for moderate pain Dilaudid 0.5 mg IV every 3 hours as needed for severe pain Narcan IV per protocol Hold aspirin and meloxicam Of note, patient has an upcoming procedure scheduled with Dr. Henry on 04/13/[address] scan of 03/23/25, the ultrasound of this evening shows that the right renal pelvis stone is now obstructing, and there is new mild hydronephrosis. Breast cancer- Continue letrozole at bedtime Hypertension- Hold aspirin Continue metoprolol succinate at bedtime Hyperlipidemia- Continue simvastatin Depression- Continue duloxetine at bedtime History of Present Illness Primary Care Provider: Mckenzie Duffy The patient is a [age]-year-old female with past medical history including recurrent urinary tract infections, history of ureteral stones, statin intolerance, statin myopathy, right breast malignant neoplasm estrogen receptor positive, multiple lung nodules on CT, hyperlipidemia, hypertension, aortic stenosis status post AVR, carotid artery stenosis, and depression. She last saw urology on 03/15/2025, with plans for procedure on 04/13/2025. However, patient's pain worsened considerably over the past 24 hours, and she presents to the ED for assessment. CT scan of abdomen and pelvis on 03/23/2025 revealed kidneys being normal in size without hydronephrosis, and with a 10 mm calculus in right renal pelvis just above the ureteropelvic junction. Ultrasound performed in the emergency department this evening shows an obstructing right renal pelvis stone of 1.2 x 0.6 x 1.0 cm, and mild hydronephrosis. Urinalysis showed multiple red cells and white cells. Allergies Allergy/AdvReac Type Severity Reaction Status Date / Time rosuvastatin Allergy Mild Achiness Verified 04/04/25 01:15 atorvastatin AdvReac Unknown Achiness Verified 04/04/25 01:15 anastrozole AdvReac achy joints Verified 04/04/25 01:15 Home Medications Medication Instructions Recorded Confirmed Type duloxetine 20 mg capsule,delayed 20 mg PO HS 03/24/18 04/04/25 History release letrozole 2.5 mg tablet 2.5 mg PO QPM 09/03/23 04/04/25 History simvastatin 40 mg tablet 40 mg PO QPM 09/04/24 04/04/25 History evolocumab 140 mg/mL subcutaneous 140 mg subcut UD 12/28/24 04/04/25 History pen injector ([employer]) metoprolol succinate 50 mg 50 mg PO QPM 12/28/24 04/04/25 History tablet,extended release 24 hr acetaminophen 500 mg tablet 1,000 mg (2 x 500 mg) PO Q8 #30 02/05/25 04/04/25 Rx (Tylenol Extra Strength) tabs aspirin 81 mg capsule 81 mg PO DAILY 04/01/25 04/04/25 History meloxicam 15 mg tablet 15 mg PO DAILY 04/04/25 04/04/25 History tramadol 50 mg tablet 50 mg PO Q4H PRN Pain 04/04/25 04/04/25 History Past Med/Surg History Problem List (Updated 04/04/25 @ 03:55 by Severiano Lacy MD) Hydronephrosis of right kidney Encounter for pre-operative examination Bacteriuria Chronic UTI (urinary tract infection) S/P total left hip arthroplasty Family history of premature coronary artery disease Statin intolerance Statin myopathy Right ureteral calculus Malignant neoplasm of central portion of right breast in female, estrogen receptor positive (Chronic 08/15/22) Kidney stones Calculus of proximal left ureter (Acute) Calcium nephrolithiasis Multiple lung nodules on CT Hyperlipidemia Medical History Anxiety Aortic stenosis Hx of: s/p AVR 03/2024; Echo 09/23/24: Well seated AVR with nl hemodynamics Carotid artery stenosis Carotid duplex 12/2020: <50% R/L ICA stenosis Depression History of breast cancer (2022) Right, s/p mastectomy R 2022 History of COVID-19 05/06/21 (home test)- sinus congestion, headache, cough > resolved History of motion sickness History of recurrent UTIs Hyperlipidemia Incisional hernia Right upper abdomen (from hysterectomy per pt) Kidney stones Lung nodule Under surveillance Surgical History History of cardiac cath 2007- no stents 02/2024- no stents (single vessel mild nonocclusive LAD lesion, "otherwise coronaries are without disease) History of colonoscopy History of cystoscopy Stone removal History of dilatation and curettage Uterine ablation History of heart valve replacement (03/2024) AVR, [facility] History of lithotripsy Multiple History of partial mastectomy of right breast (11/23/22) Right breast leticia-inspector quality assurance guided partial mastectomy, Right sentinel lymph node biopsy History of tonsillectomy History of tooth extraction History of total abdominal hysterectomy and bilateral salpingo-oophorectomy (07/11/17) History of urologic surgery + stent Nausea and vomiting after administration of anesthetic agent Success with previous scope patch use per patient S/P total left hip arthroplasty 02/04/25 [facility] : MAC, SAB (L3-4) without issue Status post lung surgery 3+ years ago (to evaluated lower lobe nodule), "benign" Follows with [facility] pulmonary Family History Family/Other Family history of diabetes mellitus Father Coronary heart disease Dyslipidemia Hypertension Stroke COPD (chronic obstructive pulmonary disease) Dementia Mother Coronary heart disease Hypertension Dyslipidemia Stroke Brother Hypertension Dyslipidemia Status post ablation operation for arrhythmia Sister Coronary heart disease Dyslipidemia Hypertension Sister Stroke Sister Dyslipidemia Sister Dyslipidemia Son No problems noted. Other Clotting disorder No family history of adverse response to anesthesia Social History Smoking Status: Former smoker Tobacco Type: Cigarettes Age Started Using Tobacco: 16; Second Hand Exposure: No; Do You Dip or Chew Tobacco: No; Hx Alcohol Use: Yes Alcohol type: wine Hx Substance Use: No Preferred Language: Yakut Communication Ability: Effective Visual Impairment: No Limitations Hearing Ability: Normal Crayon Painter Required: No Beliefs That Will Affect Care: None marital status: Current Living Situation: Family Current Living Situation Comment: , SON AND 7 YR OLD GRANDCHILD current occupation: Ethics and compliance at [employer] How many Children do You have: 1 Feels Safe at Home: Yes Childhood Exposure to Second-Hand Smoke: No Diet: regular caffeine: Yes (1 cup of coffee in am) during the past year weight has: remained stable Assistive Devices: Contacts and Glasses Review of Systems Review of Systems: The patient denies chest pain, palpitations, shortness of breath, dyspnea on exertion, cough, lower extremity swelling, sore throat, fevers, chills, sweats, nausea, vomiting, diarrhea , constipation, blood in urine or stool, lightheadedness, dizziness, headache, memory loss, loss of consciousness, rash, abnormal bruising or bleeding, imbalance, focal weakness, numbness or tingling in arms or legs, generalized arthralgias or myalgias, neck pain, or night sweats. The review of systems is otherwise negative other than for that already noted above, and at least 10 systems have been reviewed. Physical Exam Physical Exam: The patient is awake, alert and oriented 3, well developed and well nourished, normocephalic and atraumatic, lying in bed and in no acute distress. HEENT--PERRL, EOMI, mucous membranes and oropharynx dry. Neck--supple. No JVD. No bruits. Thyroid normal, trachea midline, no adenopathy. Heart--normal S1 and S2. No murmurs, rubs or gallops. Lungs--clear bilaterally, no respiratory distress, no accessory muscle use. Abdomen--normal bowel sounds and soft. Nontender post administration of pain medications. Nondistended Extremities--no cyanosis or clubbing. No edema. Dermatologic--normal skin turgor, normal color, no abnormal lymph nodes, no rash. Neurologic--cranial nerves II through XII grossly intact. Rheumatologic--normal range of motion. Psychiatric--normal affect. Results & Data Results & Data Vital Signs (Past 12 Hours) Vital Signs Temp Pulse Pulse Resp BP BP Pulse Ox 04/04/25 03:12 74 14 116/80 93 04/04/25 02:00 65 16 154/109 H 97 04/04/25 00:47 96 04/04/25 00:22 36.5 C 89 150/83 H 98 O2 Del Method 04/04/25 03:12 Room Air 04/04/25 02:00 Room Air 04/04/25 00:47 Room Air 04/04/25 00:22 Room Air Laboratory Results Laboratory Results WBC 5.72 K/ul (4.8-10.8) 04/04/25 00:37 RBC 4.22 M/uL (4.20-5.40) 04/04/25 00:37 Hgb 13.3 g/dL (12.0-16.0) 04/04/25 00:37 Hct 40.4 % (37.0-47.0) 04/04/25 00:37 MCV 95.7 fL (80.0-100.0) 04/04/25 00:37 MCH 31.5 pg (25.0-34.0) 04/04/25 00:37 MCHC 32.9 g/dL (32.0-36.0) 04/04/25 00:37 RDW Std Deviation 45.3 fL (36.4-46.3) 04/04/25 00:37 RDW Coeff of Leyla 12.9 % (11.5-14.5) 04/04/25 00:37 Plt Count 257 K/uL (130-400) 04/04/25 00:37 MPV 9.5 fL (9.4-12.4) 04/04/25 00:37 Immature Gran % (Auto) 0.3 % 04/04/25 00:37 Neut % (Auto) 45.5 % 04/04/25 00:37 Lymph % (Auto) 37.1 % 04/04/25 00:37 [place] % (Auto) 12.6 % 04/04/25 00:37 Eos % (Auto) 4.0 % 04/04/25 00:37 Baso % (Auto) 0.5 % 04/04/25 00:37 Neut # (Auto) 2.60 K/uL (1.40-6.50) 04/04/25 00:37 Lymph # (Auto) 2.12 K/uL (1.20-3.40) 04/04/25 00:37 [place] # (Auto) 0.72 K/uL (0.11-0.59) H 04/04/25 00:37 Eos # (Auto) 0.23 K/uL (0.00-0.50) 04/04/25 00:37 Baso # (Auto) 0.03 K/uL (0.00-0.20) 04/04/25 00:37 Immature Gran # (Auto) 0.02 K/uL (0.01-0.20) 04/04/25 00:37 Sodium 139 mmol/L (136-145) 04/04/25 00:37 Potassium 3.9 mmol/L (3.5-5.1) 04/04/25 00:37 Chloride 105 mmol/L (98-107) 04/04/25 00:37 Carbon Dioxide 29 mmol/L (21-32) 04/04/25 00:37 Anion Gap 5 (3-11) 04/04/25 00:37 BUN 19 mg/dl (6-23) 04/04/25 00:37 Creatinine 0.87 mg/dl (0.6-1.2) 04/04/25 00:37 Est Cr Clr Drug Dosing 68.1 ml/min 04/04/25 00:37 eGFR 74.82 04/04/25 00:37 BUN/Creatinine Ratio 21.8 (10-20) H 04/04/25 00:37 Glucose 113 mg/dl (70-99(Fasting)) H 04/04/25 00:37 Calcium 9.4 mg/dl (8.6-10.3) 04/04/25 00:37 Total Bilirubin 0.2 mg/dl (0.2-1.0) 04/04/25 00:37 AST 18 U/L (13-39) 04/04/25 00:37 ALT 11 U/L (7-52) 04/04/25 00:37 Alkaline Phosphatase 83 U/L (34-104) 04/04/25 00:37 Total Protein 7.2 gm/dl (6.0-8.3) 04/04/25 00:37 Albumin 4.2 gm/dl (3.4-5.0) 04/04/25 00:37 Globulin 3.0 gm/dl (2.5-4.0) 04/04/25 00:37 Albumin/Globulin Ratio 1.4 (0.9-2) 04/04/25 00:37 Urine Color Yellow 04/04/25 00:37 Urine Appearance Clear (Clear) 04/04/25 00: Urine pH 6.0 (4.5-7.5) 04/04/25 00:37 Ur Specific [place] 1.029 (1.000-1.030) 04/04/25 00:37 Urine Protein 2+ (Negative) H 04/04/25 00:37 Urine Glucose (UA) Negative (Negative) 04/04/25 00: Urine Ketones Trace (Negative) H 04/04/25 00:37 Urine Blood 2+ (Negative) H 04/04/25 00:37 Urine Nitrite Negative (Negative) 04/04/25 00: Urine Bilirubin Negative (Negative) 04/04/25 00: Urine Urobilinogen Negative (Negative) 04/04/25 00:37 Ur Leukocyte Esterase Trace (Negative) H 04/04/25 00:37 Urine WBC (Auto) 11-20 /hpf (0-5) H 04/04/25 00:37 Urine RBC (Auto) 11-20 /hpf (0-2) H 04/04/25 00:37 U Hyaline Cast (Auto) 0-2 /lpf (0-2) 04/04/25 00:37 U Epithel Cells (Auto) 0-2 /hpf (0-2) 04/04/25 00:37 Urine Bacteria (Auto) None Seen (None Seen) 04/04/25 00:37 Urine Comment 04/04/25 00:37 Impressions KUB X-Ray 04/04/25 00:46 EXAM: XR KUB/Abdomen 1 view CLINICAL HISTORY: Back pain, known 10mm kidney stone TECHNIQUE: X-ray images of the abdomen were obtained in supine position. COMPARISON: Prior US dated 04/04/[address] Abdomen dated 03/23/2025 reviewed. FINDINGS: Gas Pattern: Fecal loading at the ascending colon (Stable from prior CT). Gaseous distension of the ascending and transverse colon (Stable from prior CT). No evidence of bowel obstruction. Soft Tissues: A small radio-opaque calculus is seen at the confinement of the right renal shadow opposite to right transverse process of L2 vertebra (Stable). Soft tissues of the abdomen appear normal without evidence of masses. Liver, spleen, and kidneys are of normal size and position. Multiple bilateral plevic phleboli. Left total hip replacement. No device break, loosening or active osseous infection. Spondylodegenerative changes of the lumbar spine. IMPRESSION: 1. No evidence of acute bowel obstruction or other acute abdominal pathology. 2. Stable fecal loading and gaseous distension of the ascending and transverse colon. 3. Stable small radio-opaque calculus in the right kidney. 4. Left total hip replacement; no evidence of device break, loosening, or infection. 5. Spondylodegenerative changes of the lumbar spine. 6. Multiple bilateral pelvic phleboliths. 7. No significant interval changes. Electronically signed by Corenll Sanchez 04-04-2025 03:32 AM Renal Ultrasound 04/04/25 00:46 EXAM: US renal/blad retro comp CLINICAL HISTORY: Back pain, known 10 mm kidney stone. TECHNIQUE: A renal ultrasound was performed using grayscale imaging. COMPARISON: Prior CT Abdomen dated 03/23/2025 and US renal dated 02/24/2018 reviewed. FINDINGS: Right Kidney: The right kidney measures 10.3 cm in length. Right renal pelvis obstructing stone measuring 1.2 x 0.6 x 1.0cm with subsequent mild hydronephrosis (A new finding from prior US examination, stable from prior CT). Non-obstructing stone visualized at the upper pole of the right kidney measuring 0.5 x 0.2 x 0.4cm (A new finding from prior US examination). Resolution of the previously seen right renal lower pole stone. No cyst or masses were identified. Renal parenchymal echogenicity is normal. Cortical thickness: Within normal. Left Kidney: The left kidney measures 9.9cm. Non-obstructing stone visualized at the mid/lower pole of the left kidney measuring 0.6 x 0.4 x 0.5cm (Stable from prior US examination). The other stone at the lower calyx seen in the prior CT is not obvious in the current US examination. No cyst, hydronephrosis, or masses were identified. Renal parenchymal echogenicity is normal. Cortical thickness: Within normal. Renal pelvis within normal. Urinary bladder: Patient voided prior to exam. Normal wall thickness. No calculus or mass is noted in it. Left bladder jet visualized. The right bladder jet was not seen. The pre-void volume measures about =35 ml The post-void volume measures about = 12 ml. IMPRESSION: 1. Right renal pelvis obstructing stone measuring 1.2 x 0.6 x 1.0 cm with associated mild hydronephrosis (A new finding from prior US examination, stable from prior CT). 2. Non-obstructing right upper pole stone measuring 0.5 x 0.2 x 0.4 cm (new). 3. Non-obstructing left renal stone measuring 0.6 x 0.4 x 0.5 cm (stable). Electronically signed by Cornell Sanchez 04-04-2025 02:39 AM Code Status & VTE Plan Code Status Full code VTE Prophylaxis Plan VTE Prophylaxis will be ordered: Yes PG Care Time/CCT Total # of Minutes Spent Total Time Spent with Patient: Total time spent is greater than 50% in coordination of care (as documented) at patient's floor/unit and/or counseling patient: Coding Level of Care Code 90670 INT INP/OBS CARE 3/75MIN Diagnoses Hydronephrosis of right kidney N13.30 Right nephrolithiasis N20.0 Renal colic N23 History of breast cancer Z85.3
[2025-04-04] MEDS ORDERED: LACTATED RINGER'S 1,000 ML IV SCH (03:45)
[2025-04-04] MEDS ORDERED: NALOXONE HCL 0.4 MG/1 ML VIAL/CARP IV PRN (03:56)
[2025-04-04] MEDS: cefTRIAXone SODIUM 2,000 MG/50 ML BAG IV SCH (04:15)
[2025-04-04] MEDS: NSS + 20MEQ KCL 20 MEQ/1,000 ML BAG IV SCH (04:55)
[2025-04-04] MEDS ORDERED: HYDROmorphone INJ 0.5 MG/0.5 ML SYR IV PRN (08:08)
[2025-04-04] MEDS: ACETAMINOPHEN 1,000 MG/100 ML VIAL IV PRN (08:31)
--- NOTE | 2025-04-04 10:56 | Hospitalist Progress Note ---
"Date of Service April 04, 2025 Assessment & Plan (1) Hydronephrosis of right kidney: (2) Right nephrolithiasis: (3) Renal colic: (4) History of breast cancer: Plan The patient is a [age]-year-old female with past medical history including recurrent urinary tract infections, history of ureteral stones who presented to the ED on 04/04 for worsened RLQ pain secondary to known ureteral stone. #Obstructing right renal calculus| right hydronephrosis| renal colic Has been following w/ urology outpatient w/ procedure set for 04/13. Recent CT scan from 03/23 revealing a 10 mm calculus in right renal pelvis above ureteropelvic junction. Renal US: 1.2x0.6x1.0 cm right renal stone & mild hydronephrosis CBC w/o leukocytosis. BMP w/ stable renal function. UA w/ trace leuks and no bacteria. UC negative. On IV Rocephin Urology consulted --> anticipate procedure to be performed 04/05 vs 04/06. Patient NPO after midnight. Pain control w/ Tylenol 7 Dilaudid. #Breast cancer- Continue letrozole at bedtime #Hypertension- Continue metoprolol succinate at bedtime #Hyperlipidemia- Continue simvastatin #Depression- Continue duloxetine at bedtime DVT prophylaxis: SCD's, hold chemical in the setting of upcoming cystoscopy. Code: full Admission and Anticipated Discharge Date Admission Date: April 04, 2025 Supervising Physician Co-Signing Physician Notes PA Supervision Note: I did not personally see or examine the patient today, but I verified all guerra points of MARKY Jama's assessment and plan with the following exceptions/additions: add Severiano Myers was seen & examined this morning. She reports she is still having right sided abdominal/flank pain where her stone is. She reports she had vomiting last evening but denies any events this AM. Reports she had zofran for nausea prior to my arrival as well. Physical Exam Physical Exam: General: NAD, VS: BP 111/70; P68; T37C; R20 Resp: normal respiratory effort Extremities: Moves all extremities, no edema Neuro: A&O x3 Skin: intact, no lesions noted Results & Data Results & Data Vital Signs (Past 12 Hours) Vital Signs Temp Pulse Pulse Pulse Resp BP BP 04/04/25 09:47 66 04/04/25 08:10 36.4 C L 16 04/04/25 08:08 36.4 C L 69 16 04/04/25 08:08 04/04/25 07:00 74 15 119/82 04/04/25 06:30 68 10 L 04/04/25 06:00 70 12 124/78 04/04/25 05:00 71 15 111/74 04/04/25 04:58 76 04/04/25 03:12 74 14 116/80 04/04/25 02:00 65 16 154/109 H 04/04/25 00:47 04/04/25 00:22 36.5 C 89 150/83 H BP Pulse Ox Pulse Ox O2 Del Method O2 Del Method 04/04/25 09:47 04/04/25 08:10 137/81 99 Room Air 04/04/25 08:08 137/81 99 Room Air 04/04/25 08:08 99 Room Air 04/04/25 07:00 92 Room Air 04/04/25 06:30 96 04/04/25 06:00 93 Room Air 04/04/25 05:00 96 Room Air 04/04/25 04:58 04/04/25 03:12 93 Room Air 04/04/25 02:00 97 Room Air 04/04/25 00:47 96 Room Air 04/04/25 00:22 98 Room Air PG Care Time/CCT Total # of Minutes Spent Total Time Spent with Patient: Total time spent is greater than 50% in coordination of care (as documented) at patient's floor/unit and/or counseling patient: Coding Level of Care Code None Diagnoses Hydronephrosis of right kidney N13.30 Right nephrolithiasis N20.0 Renal colic N23 History of breast cancer Z85.3"
--- NOTE | 2025-04-04 12:11 | Urology Consultation ---
Date of Consultation April 04, 2025 Assessment & Plan (1) Calculus of renal pelvis: Afebrile hd stable 64F with symptomatic right renal pelvis stone admitted for pain management. Does not feel she can wait for scheduled procedure planned after holidays prefers management this admission due to intolerable pain at home. - will find OR time in next day or two for right urs ll stent placement - recommend starting tamsulosin to aid surgical removal of stones help with stone comfort and fragment passage - urine culture negative - ok to eat and drink today please make NPO midnight Present on Admission?: Yes (2) Hydronephrosis: (3) Vomiting: (4) Acute right flank pain: (5) Hydronephrosis of right kidney: History of Present Illness Reason for Consultation: right flank pain nausea and vomiting Attending Physician: Ariana Urbina MD History of Present Illness 64F well known to urology department for management of kidney stones, more recently noted to have right ~ 1cm renal pelvis stone mild hydro appears to be ball valving, in past had been able to manage pin at home and wait for scheduled procedures wanted to wait until after holidays for this but sx fairly severe and did not feel could go home yesterday, denies fevers chills nausea vomiting does not feel has UTI. Now relatively uncomfortable but not in extremis as last night tylenol helping Gen: NAD Psych: Alert and Oriented Abd: Nontender nondistended Allergies Allergy/AdvReac Type Severity Reaction Status Date / Time rosuvastatin Allergy Mild Achiness Verified 04/04/25 01:15 atorvastatin AdvReac Unknown Achiness Verified 04/04/25 01:15 anastrozole AdvReac achy joints Verified 04/04/25 01:15 Home Medications Medication Instructions Recorded Confirmed Type duloxetine 20 mg capsule,delayed 20 mg PO HS 03/24/18 04/04/25 History release letrozole 2.5 mg tablet 2.5 mg PO QPM 09/03/23 04/04/25 History simvastatin 40 mg tablet 40 mg PO QPM 09/04/24 04/04/25 History evolocumab 140 mg/mL subcutaneous 140 mg subcut UD 12/28/24 04/04/25 History pen injector ([employer]) metoprolol succinate 50 mg 50 mg PO QPM 12/28/24 04/04/25 History tablet,extended release 24 hr acetaminophen 500 mg tablet 1,000 mg (2 x 500 mg) PO Q8 #30 02/05/25 04/04/25 Rx (Tylenol Extra Strength) tabs aspirin 81 mg capsule 81 mg PO DAILY 04/01/25 04/04/25 History meloxicam 15 mg tablet 15 mg PO DAILY 04/04/25 04/04/25 History tramadol 50 mg tablet 50 mg PO Q4H PRN Pain 04/04/25 04/04/25 History Patient History Medical History Anxiety Aortic stenosis Hx of: s/p AVR 03/2024; Echo 09/23/24: Well seated AVR with nl hemodynamics Carotid artery stenosis Carotid duplex 12/2020: <50% R/L ICA stenosis Depression History of breast cancer (2022) Right, s/p mastectomy R 2022 History of COVID-19 05/06/21 (home test)- sinus congestion, headache, cough > resolved History of motion sickness History of recurrent UTIs Hyperlipidemia Incisional hernia Right upper abdomen (from hysterectomy per pt) Kidney stones Lung nodule Under surveillance Surgical History History of cardiac cath 2007- no stents 02/2024- no stents (single vessel mild nonocclusive LAD lesion, "otherwise coronaries are without disease) History of colonoscopy History of cystoscopy Stone removal History of dilatation and curettage Uterine ablation History of heart valve replacement (03/2024) AVR, [facility] History of lithotripsy Multiple History of partial mastectomy of right breast (11/23/22) Right breast leticia-duct maker guided partial mastectomy, Right sentinel lymph node biopsy History of tonsillectomy History of tooth extraction History of total abdominal hysterectomy and bilateral salpingo-oophorectomy (07/11/17) History of urologic surgery + stent Nausea and vomiting after administration of anesthetic agent Success with previous scope patch use per patient S/P total left hip arthroplasty 02/04/25 [facility] : MAC, SAB (L3-4) without issue Status post lung surgery 3+ years ago (to evaluated lower lobe nodule), "benign" Follows with [facility] pulmonary Family History Family/Other Family history of diabetes mellitus Father Coronary heart disease Dyslipidemia Hypertension Stroke COPD (chronic obstructive pulmonary disease) Dementia Mother Coronary heart disease Hypertension Dyslipidemia Stroke Brother Hypertension Dyslipidemia Status post ablation operation for arrhythmia Sister Coronary heart disease Dyslipidemia Hypertension Sister Stroke Sister Dyslipidemia Sister Dyslipidemia Son No problems noted. Other Clotting disorder No family history of adverse response to anesthesia Social History Smoking Status: Former smoker Tobacco Type: Cigarettes Age Started Using Tobacco: 16; Second Hand Exposure: No; Do You Dip or Chew Tobacco: No; Hx Alcohol Use: Yes Alcohol type: wine Hx Substance Use: No Preferred Language: Ukrainian Communication Ability: Effective Visual Impairment: No Limitations Hearing Ability: Normal Material Mover Required: No Beliefs That Will Affect Care: None marital status: Current Living Situation: Spouse Current Living Situation Comment: , SON AND 7 YR OLD GRANDCHILD current occupation: Ethics and compliance at [employer] How many Children do You have: 1 Feels Safe at Home: Yes Childhood Exposure to Second-Hand Smoke: No Diet: regular caffeine: Yes (1 cup of coffee in am) during the past year weight has: remained stable Assistive Devices: Glasses Results & Data Vital Signs (Past 12 Hours) Vital Signs Temp Pulse Pulse Pulse Pulse Resp BP 04/04/25 11:58 37.0 C 68 20 04/04/25 09:47 66 04/04/25 08:10 36.4 C L 16 04/04/25 08:08 36.4 C L 69 16 04/04/25 08:08 04/04/25 07:00 74 15 119/82 04/04/25 06:30 68 10 L 04/04/25 06:00 70 12 124/78 04/04/25 05:00 71 15 04/04/25 04:58 76 04/04/25 03:12 74 14 04/04/25 02:00 65 16 04/04/25 00:47 04/04/25 00:22 36.5 C 89 150/83 H BP BP Pulse Ox Pulse Ox O2 Del Method O2 Del Method 04/04/25 11:58 111/70 96 Room Air 04/04/25 09:47 04/04/25 08:10 137/81 99 Room Air 04/04/25 08:08 137/81 99 Room Air 04/04/25 08:08 99 Room Air 04/04/25 07:00 92 Room Air 04/04/25 06:30 96 04/04/25 06:00 93 Room Air 04/04/25 05:00 111/74 96 Room Air 04/04/25 04:58 04/04/25 03:12 116/80 93 Room Air 04/04/25 02:00 154/109 H 97 Room Air 04/04/25 00:47 96 Room Air 04/04/25 00:22 98 Room Air PG Care Time/CCT Total # of Minutes Spent Total Time Spent with Patient: Total time spent is greater than 50% in coordination of care (as documented) at patient's floor/unit and/or counseling patient: Coding Level of Care Code 97530 OFFICE CONSULT LVL Diagnoses Calculus of renal pelvis N20.0 Hydronephrosis N13.30 Vomiting R11.10 Acute right flank pain R10.A1 Hydronephrosis of right kidney N13.30
[2025-04-04] MEDS: HYDROmorphone INJ 0.5 MG/0.5 ML SYR IV PRN (15:05)
[2025-04-04] MEDS: TAMSULOSIN HCL 0.4 MG CAP PO ONE (16:28)
[2025-04-04] MEDS: ONDANSETRON INJ 2 MG/ML 2 ML VIAL IV PRN (18:12)
[2025-04-04] MEDS: LETROZOLE 2.5 MG TAB PO SCH (20:41)
[2025-04-04] MEDS: METOPROLOL SUCC 50MG EXT REL TAB PO SCH (20:42)
[2025-04-04] MEDS: SIMVASTATIN 40 MG TAB PO SCH (20:42)
[2025-04-05 06:24] LABS: Hematocrit (blood only) 33.9 % (37.0-47.0); Hemoglobin 11.1 g/dL (12.0-16.0); Immature Granulocytes # (auto) 0.03 K/uL (0.01-0.20); Immature Granulocytes % (auto) 0.6 %; Mean Corpuscular Hemoglobin 31.3 pg (25.0-34.0); Mean Corpuscular Volume 95.5 fL (80.0-100.0); Platelet Count 174 K/uL (130-400); RDW Standard Deviation 45.1 fL (36.4-46.3); Red Blood Count 3.55 M/uL (4.20-5.40); White Blood Count 5.09 K/ul (4.8-10.8)
[2025-04-05 06:55] LABS: Albumin Level 3.4 gm/dl (3.4-5.0); Anion Gap 6.0 (3-11); Blood Urea Nitrogen 13.0 mg/dl (6-23); Calcium 8.9 mg/dl (8.6-10.3); Carbon Dioxide 25.0 mmol/L (21-32); Chloride 109.0 mmol/L (98-107); Creatinine Clr Calc Pharmacy 56.4 ml/min; Glucose 112.0 mg/dl (70-99(Fasting)); Magnesium 1.8 mg/dl (1.7-2.4); Potassium 4.3 mmol/L (3.5-5.1); Sodium 140.0 mmol/L (136-145)
--- NOTE | 2025-04-05 11:36 | Urology Progress Note ---
<Statement entered by Devyn Bee MD - 04/05/25 11:45> Chart reviewed Patient to be assessed and will obtain informed consent in preop holding, plan reviewed and agree as written. Date of Service April 05, 2025 Assessment & Plan (1) Calculus of renal pelvis: (2) Hydronephrosis: (3) Acute right flank pain: Plan 64yo female admitted with pain secondary to an obstructing right renal pelvis stone Pt afebrile and hemodynamically stable Labs- WBCs 5.09, Creatinine 1.05 Urine culture 04/04 with more than 3 types of organisms moderate counts She is on Ceftriaxone Will proceed to the OR today for cystoscopy, right retrograde pyelogram, right ureteroscopy, laser lithotripsy/stone treatment, right ureteral stent placement. Risks and benefits to be reviewed with patient by Dr. Bee. Keep NPO. Urology to follow. Admission and Anticipated Discharge Date Admission Date: April 04, 2025 Subjective Patient seen at bedside this morning. NAD. Has been NPO. Review of Systems Constitutional: as per Subjective / HPI Genitourinary: as per Subjective / HPI Physical Exam Constitutional: no acute distress Respiratory: no respiratory distress and no labored breathing Neurologic: moves all extremities and awake Psychiatric: A+Ox3, euthymic affect Results & Data Vital Signs (Past 12 Hours) Vital Signs Temp Pulse Resp BP Pulse Ox O2 Del Method 04/05/25 08:12 37.3 C 74 16 114/74 95 Room Air 04/05/25 07:53 Room Air PG Care Time/CCT Total # of Minutes Spent Total Time Spent with Patient: Total time spent is greater than 50% in coordination of care (as documented) at patient's floor/unit and/or counseling patient: Coding Level of Care Code 31541 SUB INP/OBS CARE 2/35MIN Diagnoses Calculus of renal pelvis N20.0 Hydronephrosis N13.30 Acute right flank pain R10.A1
[2025-04-05] MEDS: LACTATED RINGER'S 1,000 ML IV SCH (12:38)
--- NOTE | 2025-04-05 13:17 | History & Physical Bridge Note ---
Date of Service April 05, 2025 History & Physical Bridge Note I have examined the patient, reviewed the History & Physical and in the interval since the performance of the History & Physical I have noted the following changes of clinical significance: no changes noted
[2025-04-05] MEDS ORDERED: MIDAZOLAM HCL 1 MG/ML 2ML VIAL ONE (13:20)
[2025-04-05] MEDS ORDERED: LIDOCAINE 2% 2 ML VIAL/AMP(20MG/ML) INFIL ONE (13:20)
[2025-04-05] MEDS ORDERED: ONDANSETRON INJ 2 MG/ML 2 ML VIAL ONE (13:20)
[2025-04-05] MEDS ORDERED: DEXAMETHASONE SOD INJ 4 MG/ML VIAL ONE (13:20)
[2025-04-05] MEDS ORDERED: PROPOFOL IV EMULSION 10 MG/ML 20 ML VIAL IV ONE (13:20)
[2025-04-05] MEDS: SCOPOLAMINE 1 MG/72 HR TDSY PATCH TD ONE ×2 (13:22→15:59)
[2025-04-05] MEDS: DIATRIZOATE MEGLUMINE 30% 100ML VIAL INSTIL ONE (14:17)
[2025-04-05] MEDS ORDERED: KETOROLAC 30 MG/ML VIAL ONE (14:33)
--- NOTE | 2025-04-05 14:47 | Operative Report ---
PG Post Operative Report Pre & Post Diagnosis Operation Date: 04/05/25 14:40 Pre-Op Diagnosis: Calculus of renal pelvis, hydronephrosis of right kidney Post-Op Diagnosis: Calculus of renal pelvis, hydronephrosis of right kidney I identified the patient and participated in the time-out.: Yes Procedure Operation Date: 04/05/25 14:40 Actual Procedures p Cystoscopy, Right Retrograde Pyelogram, Right Ureteroscopy, Laser Lithotripsy and Right Ureteral Stent Placement(Right) - Devyn Bee MD Surgeon Devyn Bee MD [employer] Manager na Estimated Blood Loss 2 Findings Consistent with Post-Op Diagnosis right proximal ureteral stone large spiky Specimens none Drains right 4.8 fr x 24 cm ureteral stent on string Description of Procedure SURGEON: Dr. Bee BALANCE STAFF STAKER: N/A PREOPERATIVE DIAGNOSIS: right ureteral stone POSTOPERATIVE DIAGNOSIS: Same PROCEDURE: cystoscopy, retrograde pyelogram, flexible ureteroscopy, laser lithotripsy, right ureteral stent placement FINDINGS: 1. right ureteral stone fragmented to small passable pieces right ureteral stent placed curls in renal pelvis and bladder secured to string ANESTHESIA: General ESTIMATED BLOOD LOSS: N/A TUBES AND DRAINS: right ureteral stent 4.8 fr x 24 cm SPECIMENS: none COMPLICATIONS: none INDICATIONS FOR PROCEDURE: See preoperative diagnosis OPERATIVE DETAIL: The patient was prepped and draped in the usual fashion in the operating room. Antibiotics were given prior to starting the procedure. A well lubricated rigid cystoscope was inserted into the urethral meatus and advanced into the bladder. Care was taken to keep the lumen in the center of view. Cystourethroscopy was completed and unremarkable. The left and right ureteral orifices were identified in the orthotopic positions. A 5 fr open ended ureteral catheter was advanced into the ureteral orifice over a straight sensor wire. The wire was removed and a retrograde pyelogram was performed and notable for a ureteral filling defect consistent with stone and dilated ureter contrast did not pass the proximal ureter into the remainder of the collecting system. The open ended catheter was removed. The cystoscope was removed The ureteral orifice appeared widely patent and therefore I performed no touch flexible ureteroscopy . A [employer] disposable flexible ureteroscope was introduced. A yellow crystalline stone was noted in the proximal ureter and fragmented to completion using a 200 micron thulium laser fiber. A sensor wire was introduced with positioning confirmed on fluoroscopy. A 4.8 fr x 24 cm ureteral stent was then placed with positioning confirmed visually and fluoroscopically. The string was left attached and secured to the skin All parts of the cystoscope and ureteroscope were removed intact from the patient. The patient tolerated the procedure well. Please note thatI was pr esent for and directly performed all components of the procedure. I attest to the content of the Intraoperative Record and any orders documented therein. Any exceptions are noted below.
--- NOTE | 2025-04-05 14:47 | Fluoroscopy Report ---
FL retrograde includes kub CLINICAL HISTORY: RIGHT STENTstatus post placement of a right ureteral stent COMPARISON STUDY: CT abdomen and pelvis 03/23/2025 FLUOROSCOPY TIME: 12.1 seconds FLUOROSCOPY IMAGES: 5 EXPOSURE DOSE: 2.25 mGy FINDINGS: Status post placement of a right ureteral stent, suboptimally evaluated secondary to patien t body habitus, however likely in satisfactory positioning. IMPRESSION: Fluoroscopic assistance as above. ACT 112: Negative or not required by law. Electronically signed by: Samm Chew M.D. 04/05/2025 2:45 PM
--- NOTE | 2025-04-05 15:37 | Discharge Summary ---
"Discharge Summary Date of Service April 05, 2025 Principal Dx & Hospital Course #1 = Principal Diagnosis (1) Hydronephrosis of right kidney: (2) Right nephrolithiasis: (3) Renal colic: (4) History of breast cancer: Plan The patient is a [age]-year-old female with past medical history including recurrent urinary tract infections, history of ureteral stones who presented to the ED on 04/04 for worsened RLQ pain secondary to known ureteral stone. #Obstructing right renal calculus| right hydronephrosis| renal colic Has been following w/ urology outpatient w/ procedure set for 04/13. Recent CT scan from 03/23 revealing a 10 mm calculus in right renal pelvis above ureteropelvic junction. Renal US: 1.2x0.6x1.0 cm right renal stone & mild hydronephrosis CBC w/o leukocytosis. BMP w/ stable renal function. UA w/ trace leuks and no bacteria. UC negative. s/p IV Rocephin Urology consulted --> s/p cystoscopy w/ stone removal & stent placement on 04/[address] Bee. Recommending 5 days of Macrobid on discharge. Will have stent removal set up as an outpatient through office. Continue Flomax on discharge. #Breast cancer- Continue letrozole at bedtime #Hypertension- Continue metoprolol succinate at bedtime #Hyperlipidemia- Continue simvastatin #Depression- Continue duloxetine at bedtime Updated at bedside 04/05. Discussed w/ urology 04/05, patient discharged home. Admission HPI Per Admitting Provider The patient is a [age]-year-old female with past medical history including recurrent urinary tract infections, history of ureteral stones, statin intolerance, statin myopathy, right breast malignant neoplasm estrogen receptor positive, multiple lung nodules on CT, hyperlipidemia, hypertension, aortic stenosis status post AVR, carotid artery stenosis, and depression. She last saw urology on 03/15/2025, with plans for procedure on 04/13/2025. However, patient's pain worsened considerably over the past 24 hours, and she presents to the ED for assessment. CT scan of abdomen and pelvis on 03/23/2025 revealed kidneys being normal in size without hydronephrosis, and with a 10 mm calculus in right renal pelvis just above the ureteropelvic junction. Ultrasound performed in the emergency department this evening shows an obstructing right renal pelvis stone of 1.2 x 0.6 x 1.0 cm, and mild hydronephrosis. Urinalysis showed multiple red cells and white cells. Discharge Exam General: NAD, VS: BP 110/72; P87; R18; T36.8C Resp: normal respiratory effort Extremities: Moves all extremities, no edema Neuro: A&O x3 Skin: intact, no lesions noted Discharge Plan Discharge Items Patient Disposition: Home - Self-Care Reason For Visit: OBSTRUCTING R RENAL PELVIS STONE, R HYDRO Discharge Diagnosis: Right ureteral stone Condition on Discharge: Good Activity: Resume your previous activity Non-emergency contact: Primary Care Provider and Urologist Call non-emergency contact if: you have any medication questions, your symptoms worsen and you have a fever Follow-up/Referrals: Devyn Bee MD [Physician] - Mckenzie Duffy [Primary Care Provider] - Diet: Regular Addtl Attending Provider Instructions: Mrs. Aragon, You were recently hospitalized secondary to worsening pain in relation to your ureteral stone. You underwent a cystoscopy with stone removal and stent placement on 04/[address] Bee. The urology office will coordinate office follow up for stent removal. Medications: Your medication list has been reviewed and reconciled upon discharge to ensure accuracy and continuity of care. An updated list of all your medications is included with your hospital discharge paperwork. Please review this list closely, and make note of any changes. Please take Macrobid twice daily beginning this evening, 04/05. Please take with food/meal. Please also take Flomax once daily beginning this evening, 04/05. This helps facilitate the passage of urine. Take your medications as instructed; do not skip a dose of your medicines. Make sure all of your doctors know every medicine you are taking (including uqlm-kji-pvsoisn medicines, vitamins, and supplements). Call your primary care provider before taking any new medicines (including over- the-counter medicines, vitamins, and supplements), because some of these may interact with your current medications, or may make your symptoms worse. Tell your primary care provider if you cannot afford your medications. Activity: You can do normal everyday activities as your body allows. Take rest breaks if you feel tired. Do not overexert. Stop activity if you have pain, shortness of breath or feel dizzy. Follow-up appointments: Make an appointment with your primary care physician within one week of discharge. A copy of this summary will be sent to them. Every time you see your primary care physician, or any other doctor, bring your medication list, and a list of questions. CONTACT YOUR PRIMARY CARE PROVIDER if you experience any of the following: Shortness of breath or difficulty breathing Fevers or chills Feeling tired with normal activity or experiencing dizziness or fainting Difficulty following your treatment plan, or difficulty taking medications CALL 911 OR GO TO THE EMERGENCY DEPARTMENT if you experience any of the following: Severe abdominal pain or nausea/vomiting Severe chest pain, or chest pain that radiates (moves) to your jaw or arm Sudden, severe shortness of breath or difficulty breathing Thank you for allowing us to participate in your care. Pending Studies at Discharge: No Stand-Alone Forms: [facility], Smoking Cessation Medications and DC Order Prescriptions: New nitrofurantoin macrocrystal 100 mg capsule 100 mg PO BID Qty: 10 0RF Rx Instructions: must administer with a meal/food tamsulosin 0.4 mg Capsule 0.4 mg PO HS Qty: 30 0RF Continued letrozole 2.5 mg tablet 2.5 mg PO QPM simvastatin 40 mg tablet 40 mg PO QPM duloxetine 20 mg Capsule,Delayed Release(Dr/Ec) 20 mg PO HS metoprolol succinate 50 mg tablet extended release 24 hr 50 mg PO QPM Repatha [employer] 140 mg/mL pen injector 140 mg subcut UD Patient Comments: every two weeks acetaminophen [Tylenol Extra Strength] 500 mg Tablet 1,000 mg PO Q8 Qty: 30 0RF meloxicam 15 mg tablet 15 mg PO DAILY tramadol 50 mg tablet 50 mg PO Q4H PRN (Reason: Pain) aspirin 81 mg Capsule 81 mg PO DAILY Discharge Orders: Discharge Order (Routine); Ordered 04/05/25 Ordered By: Cathleen Jama Admission Data Admit Date/Time: 04/04/25 03:33 Attending Provider: Prince Cruz Admit Provider: Severiano Lacy Primary Care Provider: Mckenzie Duffy Other Providers: Severiano Lacy; Devyn Bee Other Interventions: Discharge Summary Assessment (RN) Last Done: 04/05/25 15:56 Hospital Stay Data Consultations 04/04/25 02:41 ED Decision to Admit Stat 04/04/25 06:43 Consult Urology Routine Procedures Performed Operation Date: 04/05/25 14:40 Actual Procedures p Cystoscopy, Right Retrograde Pyelogram, Right Ureteroscopy, Laser Lithotripsy and Right Ureteral Stent Placement(Right) - Devyn Bee MD Diagnostic Imagining Performed 04/04/25 00:46 US Kidney Bladder [US renal/blad retro comp] Stat 04/05/25 FL retrograde includes kub Routine Pending Results Patient Have Any Pending Studies at Discharge: No Discharge Instructions Given to Patient (Per Discharging Provider) Mrs. Aragon, Martin were recently hospitalized secondary to worsening pain in relation to your ureteral stone. You underwent a cystoscopy with stone removal and stent placement on 04/[address] Bee. The urology office will coordinate office follow up for stent removal. Medications: Your medication list has been reviewed and reconciled upon discharge to ensure accuracy and continuity of care. An updated list of all your medications is included with your hospital discharge paperwork. Please review this list closely, and make note of any changes. Please take Macrobid twice daily beginning this evening, 04/05. Please take with food/meal. Please also take Flomax once daily beginning this evening, 04/05. This helps facilitate the passage of urine. Take your medications as instructed; do not skip a dose of your medicines. Make sure all of your doctors know every medicine you are taking (including kmyp-gig-rbsvrfn medicines, vitamins, and supplements). Call your primary care provider before taking any new medicines (including over- the-counter medicines, vitamins, and supplements), because some of these may interact with your current medications, or may make your symptoms worse. Tell your primary care provider if you cannot afford your medications. Activity: You can do normal everyday activities as your body allows. Take rest breaks if you feel tired. Do not overexert. Stop activity if you have pain, shortness of breath or feel dizzy. Follow-up appointments: Make an appointment with your primary care physician within one week of d ischarge. A copy of this summary will be sent to them. Every time you see your primary care physician, or any other doctor, bring your medication list, and a list of questions. CONTACT YOUR PRIMARY CARE PROVIDER if you experience any of the following: Shortness of breath or difficulty breathing Fevers or chills Feeling tired with normal activity or experiencing dizziness or fainting Difficulty following your treatment plan, or difficulty taking medications CALL 911 OR GO TO THE EMERGENCY DEPARTMENT if you experience any of the following: Severe abdominal pain or nausea/vomiting Severe chest pain, or chest pain that radiates (moves) to your jaw or arm Sudden, severe shortness of breath or difficulty breathing Thank you for allowing us to participate in your care. Total Time Total Time Spent Total Time Spent (In Minutes): 45 Total Time Includes: Examination of the Patient, Discharge Planning, Medication Reconciliation and Communication With Other Providers Coding Level of Care Code 58557 INP/OBS DISCH >30 MIN Diagnoses Hydronephrosis of right kidney N13.30 Right nephrolithiasis N20.0 Renal colic N23 History of breast cancer Z85.3"
--- NOTE | 2025-04-05 16:36 | Anesthesiology Progress Note ---
Date of Service April 05, 2025 Anesthesia Post Procedure Vital Signs Vital Signs: Temp Pulse Pulse Pulse Resp BP BP 04/05/25 15:56 37.0 C 75 20 102/64 04/05/25 15:55 36.8 C 74 16 108/75 04/05/25 15:32 37.0 C 75 20 102/64 04/05/25 15:05 36.9 C 77 16 116/65 04/05/25 14:55 74 16 114/71 04/05/25 14:45 73 16 114/80 04/05/25 14:37 36.0 C L 76 16 128/83 04/05/25 12:29 36.9 C 75 18 127/66 04/05/25 08:12 37.3 C 74 16 114/74 04/05/25 07:53 04/04/25 20:41 04/04/25 20:41 04/04/25 20:38 36.8 C 87 16 112/65 04/04/25 18:35 36.8 C 72 20 130/84 04/04/25 18:30 Pulse Ox Pulse Ox O2 Del Method O2 Del Method O2 Flow Rate 04/05/25 15:56 97 04/05/25 15:55 94 Room Air 04/05/25 15:32 97 Room Air 04/05/25 15:05 98 Room Air 04/05/25 14:55 100 Room Air 04/05/25 14:45 98 Oxymask 2 04/05/25 14:37 100 Oxymask 4 04/05/25 12:29 95 Room Air 04/05/25 08:12 95 Room Air 04/05/25 07:53 Room Air 04/04/25 20:41 Room Air 04/04/25 20:41 96 Room Air 04/04/25 20:38 96 Room Air 04/04/25 18:35 99 Room Air 04/04/25 18:30 Room Air Pain Intensity Right Flank: Pain Intensity: 5 Transfer of Care Handoff Completed per policy Notes Mental Status: alert / awake / arousable Patient Amnestic to Procedure: Yes Nausea / Vomiting: adequately controlled Pain: adequately controlled Airway Patency, RR, SpO2: stable & adequate BP & HR: stable & adequate Hydration State: stable & adequate Anesthetic Complications: no major complications apparent
[2025-04-05 16:49] VITALS: RESP 18; TEMP 98.2
[2025-04-05] MEDS: CHECK SCOPOLAMINE PATCH PLACEMENT SCH (17:04)
[2025-04-05 17:18] VITALS: BP 110/72; PULSE 87; O2SAT 94
[2025-04-05] MEDS ORDERED: TAMSULOSIN HCL 0.4 MG CAP PO SCH (21:00)
[2025-04-08] MEDS ORDERED: REMOVE TRANSDERM-SCOP PATCH ONE (06:00)
== END 2025-04-05 17:33 | disposition home or self-care (01) ==
LOC: SUATTDRO → ED 00:20 → 2W 00:20 → SUATTDRO 03:33 → 2W 07:55 → 3W 18:34